=== PATIENT | female | born 1950 | race Caucasian/White ===

== ENCOUNTER 2023-02-11 18:33 | Inpatient (IN) | payer OTHER ==
[~2023-02-11] VITALS: Ht 165.1 cm; Wt 102.5 kg
[2023-02-11] MEDS ORDERED: CARV6.252 PO (18:55)
[2023-02-11] MEDS ORDERED: FURO-152 PO (18:55)
[2023-02-11] MEDS ORDERED: ONDA4TAB5 PO (18:55)
[2023-02-11] MEDS ORDERED: ESOM20CA PO (18:55)
[2023-02-11] MEDS ORDERED: TRAM50TA2 PO (18:55)
[2023-02-11] MEDS ORDERED: APIX2.5T PO (18:55)
[2023-02-11] MEDS ORDERED: LEVO150T PO (18:55)
[2023-02-11] MEDS ORDERED: DONE5TAB34 PO (18:55)
[2023-02-11] MEDS ORDERED: AMIO100T4 PO (18:55)
[2023-02-11] MEDS ORDERED: CRAN250C PO (18:55)
[2023-02-11] MEDS ORDERED: ASPI81TA31 PO (18:55)
[2023-02-11] MEDS ORDERED: MEMA10TA PO (18:55)
[2023-02-11] MEDS ORDERED: LIDOCAINE PATCH 5% (18:55)
[2023-02-11] MEDS ORDERED: FLUO40CA49 PO (18:55)
[2023-02-11] MEDS ORDERED: ERGOCALCIFEROL (18:55)
[2023-02-11] MEDS ORDERED: DOCU-141 PO (18:55)
[2023-02-11] MEDS ORDERED: SENN8.6T19 PO (18:55)
[2023-02-11] MEDS ORDERED: GABA-532 PO (18:55)
[2023-02-11] MEDS ORDERED: DIVA-78 PO (18:55)
[2023-02-11] MEDS ORDERED: ARIP2TAB3 PO (18:55)
[2023-02-11] MEDS ORDERED: BENZ-13 PO (18:55)
[2023-02-11] MEDS ORDERED: ENALAPRILAT DIHYDRATE 1.25 MG/1 ML VIAL IV ONE ×2 (19:30→19:36)
[2023-02-11] MEDS ORDERED: NITROGLYCERIN OINT 1 GM PACKET TP ONE ×2 (19:30→19:36)
[2023-02-11 19:37] LABS: CARBON DIOXIDE 31 mmol/L (21-32); CHLORIDE 105 mmol/L (98-107); CREATININE 1.3 mg/dL (0.6-1.3); HEMATOCRIT 33.6 % (31.2-41.9); MEAN CORPUSCULAR HEMOGLOBIN 30.8 uug (24.7-32.8); MEAN CORPUSCULAR VOLUME 95.4 fL (75.5-95.3); PLATELET COUNT (AUTO) 70 K/uL (179-408); POTASSIUM 3.8 mmol/L (3.5-5.1); UREA NITROGEN, BLOOD 24 mg/dL (7-18)
[2023-02-11 19:50] LABS: ALANINE AMINOTRANSFERASE 14 U/L (14-59); ALKALINE PHOSPHATASE 119 U/L (50-136); ASPARTATE AMINOTRANSFERASE 19 U/L (15-37); BILIRUBIN,DIRECT 0.2 mg/dL (0.0-0.2); BILIRUBIN,TOTAL 0.5 mg/dL (0.2-1.0); TOTAL PROTEIN, SERUM 5.7 g/dL (6.4-8.2)
--- NOTE | 2023-02-11 19:56 | NUR ---
PATIENT RESTING IN BED WITH C/O SOB AND GENERALIZED EDEMA X FEW DAYS. PATIENT IS ALERT, ORIENTED X3, LUNG SOUNDS WITH RHONCHI, ABD OBESE WITH POSITIVE BOWEL SOUNDS. INFORMED OF PLAN OF CARE. #22G WAS ESTABLISHED IN RIGHT HAD, BLOOD COLLECTED AND SENT TO LAB, BEDSIDE EKG DONE FOR MD REVIEW, LO CATH INSERTED AND URINE WAS SENT TO LAB. SIDE RAILS, HAS BEEN MEDICATED PER ORDER, WILL CONTINUE TO MONITOR.
[2023-02-11 20:07] LABS: *BILIRUBIN,URIN NEGATIVE (NEGATIVE); *BLOOD, URINE 1+ (NEGATIVE); *CLARITY,URINE CLEAR (CLEAR); *COLOR,URINE YELLOW (YELLOW); *KETONES,URINE NEGATIVE (NEGATIVE); LEUKOCYTE ESTERASE ,URINE NEGATIVE (NEGATIVE); NITRITE, URINE NEGATIVE (NEGATIVE); PH,URINE 5.5 (5.0-8.0); UGLUCOSE NEGATIVE (NEGATIVE)
[2023-02-11] MEDS ORDERED: FUROSEMIDE 40 MG/4 ML VIAL ONE ×2 (20:22→20:27)
[2023-02-11] MEDS ORDERED: POTASSIUM CHLORIDE 20 MEQ TAB.PRT.SR ONE (20:24)
[2023-02-11 20:25] LABS: NEUTROPHILS % (MANUAL) 0 % (42-75)
[2023-02-11] MEDS ORDERED: POTASSIUM CHLORIDE 20 MEQ TAB.PRT.SR PO ONE (20:30)
[2023-02-11] MEDS ORDERED: FUROSEMIDE 40 MG/4 ML VIAL IV ONE (20:30)
[2023-02-11] MEDS ORDERED: POTASSIUM CHLORIDE 20 MEQ POWDER PACKET PO ONE (20:30)
--- NOTE | 2023-02-11 20:44 | NUR ---
PATIENT RECEIVED 40MEQ OF KLOR-CON TABLETS NOT K-DUR. PATIENT REPOSITIONED FOR COMFORT AT THIS TIME.
--- NOTE | 2023-02-11 21:15 | NUR ---
CALLED [facility] FOR PANEL CALL. AWAITING FOR EFRA GAMEZ TO CALL BACK
--- NOTE | 2023-02-11 21:18 | NUR ---
PATIENT WANT'S DAUGHTER PATRICA TO BE CALLED FOR EMERGENCY [phone].
--- NOTE | 2023-02-11 21:27 | NUR ---
PATIENT HAS BEEN ACCEPTED BY EFRA GAMEZ
--- NOTE | 2023-02-11 21:28 | NUR ---
3RD FLOOR CALLED, PATIENT ASSIGNED TO ROOM 316
[2023-02-11] MEDS ORDERED: ONDANSETRON 4 MG/2 ML VIAL IV PRN (21:45)
[2023-02-11] MEDS ORDERED: MAGNESIUM HYDROXIDE 30 ML LIQUID UDC PO PRN (21:45)
--- NOTE | 2023-02-11 22:14 | NUR ---
REPORT GIVEN TO MOHSEN, PATIENT REMAINS STABLE FOR TRANSPORT TO UNIT.
[2023-02-11 22:50] LABS: BACTERIA,URINE FEW /HPF (NONE SEEN); SQUAMOUS EPITHELIAL CELL,UR FEW /HPF (NONE SEEN); WBC,URINE 0-3 /HPF (0-3)
[2023-02-11 23:23] VITALS: BP 116/79; TEMP 97.7; O2SAT 99
[2023-02-12 00:12] VITALS: O2SAT 99
--- NOTE | 2023-02-12 01:23 | NUR ---
Received report from [facility]. pt is alert oriented x 3, verbally responsive, incontinent, with generalized edema, bruises bilateral upper arms, bed bound, admitted for DX CHF exacerbation. Pictures taken, bed in low position, call light within reach.
[2023-02-12 04:00] VITALS: BP 116/72; TEMP 97.5; O2SAT 98
[2023-02-12] MEDS: PANTOPRAZOLE SODIUM 40 MG TABLET.DR PO SCH (06:18)
[2023-02-12 07:36] LABS: HEMATOCRIT 30.1 % (31.2-41.9); MEAN CORPUSCULAR HEMOGLOBIN 31.3 uug (24.7-32.8); MEAN CORPUSCULAR VOLUME 95.2 fL (75.5-95.3); PLATELET COUNT (AUTO) 69 K/uL (179-408)
[2023-02-12 07:41] LABS: CARBON DIOXIDE 30 mmol/L (21-32); CHLORIDE 105 mmol/L (98-107); CHOLESTEROL 139 mg/dL (<200); CREATININE 1.1 mg/dL (0.6-1.3); HDL CHOLESTEROL 52 mg/dL (40-60); MAGNESIUM 1.3 mg/dL (1.8-2.4); PHOSPHOROUS 3.2 mg/dL (2.5-4.9); POTASSIUM 3.8 mmol/L (3.5-5.1); TRIGLYCERIDES 69 MG/DL (30-150); UREA NITROGEN, BLOOD 23 mg/dL (7-18)
[2023-02-12 08:20] LABS: THYROID STIMULATING HORMONE 14.645 mIU/mL (0.358-3.740)
[2023-02-12 08:57] LABS: NEUTROPHILS % (MANUAL) 0 % (42-75)
[2023-02-12 08:58] LABS: LYMPHOCYTES % (MANUAL) 0 % (20-40)
[2023-02-12] MEDS ORDERED: ASPIRIN 81 MG TAB.CHEW PO SCH (09:00)
[2023-02-12] MEDS ORDERED: FUROSEMIDE 40 MG/4 ML VIAL IV SCH (09:00)
--- NOTE | 2023-02-12 09:00 | NUR ---
SEEN BY DR DIAZ AND DR POMPA FOR FOLLOW-UP SEE NOTES
[2023-02-12] MEDS: FUROSEMIDE 40 MG/4 ML VIAL IV SCH ×2 (09:04→17:33)
[2023-02-12] MEDS: APIXABAN 2.5 MG TABLET PO SCH ×2 (09:26→20:57)
[2023-02-12] MEDS: MEMANTINE HCL 5 MG TABLET PO SCH (09:27)
[2023-02-12] MEDS: FLUOXETINE HCL 20 MG CAPSULE PO SCH (09:27)
[2023-02-12] MEDS: DOCUSATE SODIUM 100 MG CAPSULE PO SCH ×2 (09:27→17:33)
[2023-02-12] MEDS: LEVOTHYROXINE SODIUM 150 MCG TABLET PO SCH (09:30)
[2023-02-12] MEDS: CARVEDILOL 6.25 MG TABLET PO SCH ×2 (09:31→17:34)
[2023-02-12] MEDS: GABAPENTIN 100 MG CAPSULE PO SCH ×3 (09:51→17:33)
[2023-02-12] MEDS: ARIPIPRAZOLE 2 MG TABLET PO SCH (09:51)
[2023-02-12] MEDS: SENNOSIDES 1 TABLET PO SCH (09:51)
[2023-02-12 11:54] VITALS: BP 105/64; TEMP 97.5; O2SAT 98
[2023-02-12] MEDS: MAGNESIUM SULFATE/D5W 100 ML IV SCH ×2 (12:14→14:00)
[2023-02-12 16:15] VITALS: BP 172/70; TEMP 98.4; O2SAT 99
[2023-02-12] MEDS ORDERED: ERGO500040 PO (17:14)
[2023-02-12] MEDS: PROTEIN SUPPLEMENT (PROSTAT) 30 ML LIQUID PO SCH (17:35)
--- NOTE | 2023-02-12 17:48 | NUR ---
CONTINUE PLAN OF CARE TOLERATING LASIX WITH URINE OUTPUT TOTAL OF 800 ML. SR ON MONITOR
[2023-02-12 18:43] VITALS: O2SAT 99
[2023-02-12 20:00] VITALS: BP 124/67; TEMP 98; O2SAT 99
[2023-02-12] MEDS ORDERED: ALBUTEROL SULFATE 2.5 MG/ 0.5 ML NEBU NEB PRN (20:00)
[2023-02-12] MEDS: DONEPEZIL 5 MG TABLET PO SCH (20:57)
[2023-02-12] MEDS: DIVALPROEX 250 MG TABLET.DR PO SCH (20:57)
[2023-02-12] MEDS: TRAMADOL HCL 50 MG TABLET PO PRN (21:05)
[2023-02-13] VITALS (7 sets, daily range): BP systolic 104–140; BP diastolic 38–78; TEMP 98–98.6; O2SAT 95–99
[2023-02-13] MEDS: PANTOPRAZOLE SODIUM 40 MG TABLET.DR PO SCH (06:32)
[2023-02-13] MEDS: LEVOTHYROXINE SODIUM 150 MCG TABLET PO SCH (06:35)
--- NOTE | 2023-02-13 06:41 | NUR ---
PATIENT ASLEEP IN BED. EASILY AROUSABLE. SLEPT WELL THROUGHOUT THE NIGHT. CALL LIGHT IN REACH. WILL CONTINUE TO MONITOR AND ASSESS
--- NOTE | 2023-02-13 07:30 | NUR ---
RECEIVED PATIENT IN BED AWAKE ALERT AND ORIENTED X3, ON O2 AT 2L NC SATURATING 96%. SR ON MONITOR. AM CRE GIVEN REQUIRES MIN TO MODERATE ASSISTANCE.
--- NOTE | 2023-02-13 09:00 | NUR ---
WOUND CARE CONSULT: PT PRESENTS WITH GENERALIZED EDEMA, DISCOLORATIONS TO ARMS AND RASH TO LEFT BREASTFOLD, PRESENT ON ADMISSION. DISCUSSED SKIN PROTECTION WITH NURSING STAFF. MD IN AGREEMENT WITH PLAN OF CARE.
[2023-02-13] MEDS: MEMANTINE HCL 5 MG TABLET PO SCH (09:02)
[2023-02-13] MEDS: ARIPIPRAZOLE 2 MG TABLET PO SCH (09:02)
[2023-02-13] MEDS: APIXABAN 2.5 MG TABLET PO SCH ×2 (09:02→21:00)
[2023-02-13] MEDS: GABAPENTIN 100 MG CAPSULE PO SCH ×3 (09:02→17:44)
[2023-02-13] MEDS: SENNOSIDES 1 TABLET PO SCH (09:03)
[2023-02-13] MEDS: FLUOXETINE HCL 20 MG CAPSULE PO SCH (09:03)
[2023-02-13] MEDS: FUROSEMIDE 40 MG/4 ML VIAL IV SCH ×2 (09:03→17:44)
[2023-02-13] MEDS: DOCUSATE SODIUM 100 MG CAPSULE PO SCH ×2 (09:03→17:00)
[2023-02-13] MEDS: CARVEDILOL 6.25 MG TABLET PO SCH ×2 (09:04→17:44)
[2023-02-13] MEDS: PROTEIN SUPPLEMENT (PROSTAT) 30 ML LIQUID PO SCH ×3 (09:05→17:28)
[2023-02-13] MEDS: REMEDY ESSENTIAL ZINC PASTE 113 GM TP PRN (09:05)
[2023-02-13] MEDS ORDERED: PIPERACILLIN SODIUM/TAZOBACTAM 3.375 G in IV DEXTROSE 5% 50 ML IV SCH (09:15)
[2023-02-13] MEDS ORDERED: VANCOMYCIN IV 1,000 MG in IV DEXTROSE 5% 250 ML IV SCH (11:00)
--- NOTE | 2023-02-13 11:30 | NUR ---
SEEN BY HOSPITALIST FOR FOLLOW-UP. CONTINUE PLAN OF CARE ORDERED. SEE NOTES. FOR MIDLINE INSERTION
[2023-02-13] MEDS: TRAMADOL HCL 50 MG TABLET PO PRN (11:37)
[2023-02-13 11:48] LABS: HEMATOCRIT 29.1 % (31.2-41.9); MEAN CORPUSCULAR HEMOGLOBIN 31.2 uug (24.7-32.8); MEAN CORPUSCULAR VOLUME 95.4 fL (75.5-95.3); PLATELET COUNT (AUTO) 64 K/uL (179-408)
[2023-02-13 13:20] LABS: EOSINOPHILS % (MANUAL) 1 % (0-8); LYMPHOCYTES % (MANUAL) 5 % (20-40); MONOCYTES % (MANUAL) 9 % (2-10); NEUTROPHILS % (MANUAL) 85 % (42-75)
[2023-02-13 13:23] LABS: ALANINE AMINOTRANSFERASE 9 U/L (14-59); ALKALINE PHOSPHATASE 109 U/L (50-136); ASPARTATE AMINOTRANSFERASE 11 U/L (15-37); BILIRUBIN,TOTAL 0.5 mg/dL (0.2-1.0); CARBON DIOXIDE 32 mmol/L (21-32); CHLORIDE 104 mmol/L (98-107); CREATINE KINASE, TOTAL 30 U/L (26-192); CREATININE 1.4 mg/dL (0.6-1.3); MAGNESIUM 1.5 mg/dL (1.8-2.4); PHOSPHOROUS 3.3 mg/dL (2.5-4.9); POTASSIUM 3.7 mmol/L (3.5-5.1); TOTAL PROTEIN, SERUM 5.1 g/dL (6.4-8.2); UREA NITROGEN, BLOOD 22 mg/dL (7-18)
[2023-02-13] MEDS ORDERED: PIPERACILLIN SODIUM/TAZOBACTAM 3.375 G in IV DEXTROSE 5% 100 ML IV SCH (14:00)
[2023-02-13] MEDS: CLOTRIMAZOLE 1% CREAM 30 GM TUBE TOP SCH (17:27)
[2023-02-13] MEDS: DONEPEZIL 5 MG TABLET PO SCH (21:12)
[2023-02-13] MEDS: DIVALPROEX 250 MG TABLET.DR PO SCH (21:15)
--- NOTE | 2023-02-13 21:20 | NUR ---
Rodriguez cath noted with pinkish urine and platelet of 64, Gabriel Hutton NP made aware with order to hold eliquis until morning. Dr Mcdonald also notified.
[2023-02-14] VITALS (9 sets, daily range): BP systolic 93–146; BP diastolic 51–73; TEMP 98–98.6; O2SAT 92–100
[2023-02-14] MEDS: TRAMADOL HCL 50 MG TABLET PO PRN ×3 (05:02→21:47)
[2023-02-14] MEDS: LEVOTHYROXINE SODIUM 150 MCG TABLET PO SCH (06:53)
[2023-02-14] MEDS: PANTOPRAZOLE SODIUM 40 MG TABLET.DR PO SCH (06:53)
--- NOTE | 2023-02-14 07:30 | NUR ---
NIGHT NURSE REPORT RECEIVED: 1) MENTAL STATE: AO x 3 a pleasant lady. 2) BREATHING: Patient on 2 liters oxygen via nasal cannula - , sat in the high 90s. No sign of distress observed. 3) SAFETY: Bedbound - Bed in low position, bed alarm activated, floor free of clutter and call smart within reach. 4) CIRCULATION: No signs of cyanosis observed. 5) MOBILITY: Patient on bed rest - needs assistance with all care. 6) BOWEL MOVEMENT: No Bowels at the time of this report. 7) SKIN: Patient has excoriation of the: (i) groin (ii) abdo fold (iii) breast fold (iv) rectum area 8) PLAN: Will continue to treat patient accordingly. Addendum: 02/14/23 at 0754 by REGISTRY [facility] INPATIENT RN13 RN Night nurse reported: (i) Hold 9am Neftali until reviewed by MD Casey (ii) Patient has pinkish urine (iii) Platelets 16
[2023-02-14] MEDS: APIXABAN 2.5 MG TABLET PO SCH ×2 (07:52→21:00)
--- NOTE | 2023-02-14 08:30 | NUR ---
VITALS: - Vitals recorded and within normal limits.
[2023-02-14] MEDS: MEMANTINE HCL 5 MG TABLET PO SCH (08:42)
[2023-02-14] MEDS: FLUOXETINE HCL 20 MG CAPSULE PO SCH (08:42)
[2023-02-14] MEDS: GABAPENTIN 100 MG CAPSULE PO SCH ×3 (08:42→17:54)
[2023-02-14] MEDS: CARVEDILOL 6.25 MG TABLET PO SCH ×2 (08:47→17:55)
[2023-02-14] MEDS: PROTEIN SUPPLEMENT (PROSTAT) 30 ML LIQUID PO SCH ×3 (08:47→17:10)
[2023-02-14] MEDS: FUROSEMIDE 40 MG/4 ML VIAL IV SCH ×2 (08:48→17:54)
[2023-02-14] MEDS: SENNOSIDES 1 TABLET PO SCH (08:49)
[2023-02-14] MEDS: DOCUSATE SODIUM 100 MG CAPSULE PO SCH ×2 (08:49→17:00)
[2023-02-14] MEDS: CLOTRIMAZOLE 1% CREAM 30 GM TUBE TOP SCH ×2 (08:50→17:10)
[2023-02-14 08:53] LABS: *RHEUMATOID FACTOR SCREEN NEGATIVE (NEGATIVE)
--- NOTE | 2023-02-14 09:03 | NUR ---
AM MEDICATION: 1) Administered as prescribed except: (i) Senna (ii) Docusate, because patient has loose stool. (iii) Abilify - awaiting pharmacy to deliver 2) Slight nose bleed - dried and scabs of dried blood on the left had (swollen) - patient picking on dried blood, advised not to as this will stimulate more bleeding. 3) Patient has swelling lower limbs and upper left hand.
--- NOTE | 2023-02-14 09:06 | NUR ---
ABILIFY ADMINISTERED NOW RECEIVED FROM PHARMACY
[2023-02-14] MEDS: ARIPIPRAZOLE 2 MG TABLET PO SCH (09:40)
[2023-02-14 11:59] LABS: CARBON DIOXIDE 33 mmol/L (21-32); CHLORIDE 103 mmol/L (98-107); CREATININE 1.3 mg/dL (0.6-1.3); MAGNESIUM 1.5 mg/dL (1.8-2.4); POTASSIUM 3.3 mmol/L (3.5-5.1); UREA NITROGEN, BLOOD 23 mg/dL (7-18)
--- NOTE | 2023-02-14 13:07 | NUR ---
ROUNDING - No sign of distress, SOB, cyanosis, or pain.
--- NOTE | 2023-02-14 15:29 | NUR ---
MI BLEEDIN) MD PHYSICIAN DERMATOLOGIST reported a large amount of MI bleed with bowel movement. 2) Sent a message to MD and await response and new orders. 3) Vitals: (i) BP 145/41 (ii) T98.1 (iii) P 71 (iv)Oxygen Sats 99% on RA 4) Complaining of rectal pain - Tramadol administered as prescribed and await effect.
[2023-02-14] MEDS: SOD FERRIC GLUC COMPLX/SUCROSE 125 MG in IV NORMAL SALINE 100 ML IV SCH ×2 (16:02→16:15)
--- NOTE | 2023-02-14 16:03 | NUR ---
NE BLEEDING UPDATE: 1) MD Casey responded - will come and assess patient as soon as possible. 2) Ordered Ferrlecit 125mg and waiting receipt from pharmacy. 3) Patient asleep comfortably - did not want to be moved to because of rectal pain.
--- NOTE | 2023-02-14 16:16 | NUR ---
IV FERRLECIT received and administered as prescribed.
--- NOTE | 2023-02-14 18:37 | NUR ---
ROUNDING" 1) No sign of distress, SOB, cyanosis, or pain. 2) Asleep comfortably - medication, food and drink consumed as needed. 3) MD ordered: (i) Labs as follows: CBC, Mag, Phos (ii) XR Chest 4) No further complaints for the rest of the day. 5) Will endorse care to night staff accordingly.
[2023-02-14] MEDS: DIVALPROEX 250 MG TABLET.DR PO SCH (20:53)
[2023-02-14] MEDS: DONEPEZIL 5 MG TABLET PO SCH (20:53)
[2023-02-15 05:00] VITALS: O2SAT 99
[2023-02-15] MEDS: PANTOPRAZOLE SODIUM 40 MG TABLET.DR PO SCH ×2 (06:29→17:22)
[2023-02-15] MEDS: LEVOTHYROXINE SODIUM 150 MCG TABLET PO SCH (06:29)
[2023-02-15 06:31] VITALS: BP 111/71; TEMP 98.6; O2SAT 98
--- NOTE | 2023-02-15 07:30 | NUR ---
NIGHT NURSE REPORT RECEIVED: 1) MENTAL STATE: BENTLEY landers 4, a pleasant lady. 2) BREATHING: Patient on 2 liters oxygen via nasal cannula - , sat in the high 90s. No sign of distress observed. 3) SAFETY: Bedbound - Bed in low position, bed alarm activated, floor free of clutter and call smart within reach. 4) CIRCULATION: No signs of cyanosis observed. Look pale and MD AWARE, hgb9.4 - no active bleeding at the time of this report. 5) MOBILITY: Patient on bed rest - needs maximum assistance with all care. 6) BOWEL MOVEMENT: Bowels opened last night - no blood observed by night staff. Patient is doubly incontinent. 7) SKIN: Patient has excoriation of the: (i) groin (ii) abdo fold (iii) breast fold (iv) rectum area (v) Has a blister on the right upper thigh - open to air and pic in folder 8) PLAN: Will continue to treat patient accordingly. Addendum: 02/14/23 at 0754 by REGISTRY [facility] INPATIENT RN13 RN Night nurse reported: (i) Hold 9am Eliquis until reviewed by MD Casey (ii) Patient has pinkish urine (iii) Platelets 16
[2023-02-15 07:40] LABS: HEMATOCRIT 28.8 % (31.2-41.9); MEAN CORPUSCULAR HEMOGLOBIN 30.9 uug (24.7-32.8); MEAN CORPUSCULAR VOLUME 94.7 fL (75.5-95.3); PLATELET COUNT (AUTO) 75 K/uL (179-408)
[2023-02-15 08:06] LABS: ALANINE AMINOTRANSFERASE 12 U/L (14-59); ALKALINE PHOSPHATASE 101 U/L (50-136); ASPARTATE AMINOTRANSFERASE 19 U/L (15-37); BILIRUBIN,TOTAL 0.5 mg/dL (0.2-1.0); CARBON DIOXIDE 34 mmol/L (21-32); CHLORIDE 102 mmol/L (98-107); CREATININE 1.3 mg/dL (0.6-1.3); MAGNESIUM 1.3 mg/dL (1.8-2.4); PHOSPHOROUS 3.2 mg/dL (2.5-4.9); POTASSIUM 3.4 mmol/L (3.5-5.1); TOTAL PROTEIN, SERUM 5.2 g/dL (6.4-8.2); UREA NITROGEN, BLOOD 28 mg/dL (7-18)
[2023-02-15] MEDS: PROTEIN SUPPLEMENT (PROSTAT) 30 ML LIQUID PO SCH ×4 (08:13→17:23)
[2023-02-15] MEDS: FUROSEMIDE 40 MG/4 ML VIAL IV SCH ×2 (08:14→17:22)
[2023-02-15] MEDS: MEMANTINE HCL 5 MG TABLET PO SCH (08:14)
[2023-02-15] MEDS: FLUOXETINE HCL 20 MG CAPSULE PO SCH (08:14)
[2023-02-15] MEDS: TRAMADOL HCL 50 MG TABLET PO PRN (08:14)
[2023-02-15] MEDS: GABAPENTIN 100 MG CAPSULE PO SCH ×3 (08:14→17:22)
[2023-02-15] MEDS: CARVEDILOL 6.25 MG TABLET PO SCH ×2 (08:15→17:24)
--- NOTE | 2023-02-15 08:50 | NUR ---
AM MEDICATION ADMINISTERED PRESCRIBED
[2023-02-15] MEDS: SENNOSIDES 1 TABLET PO SCH (09:00)
[2023-02-15] MEDS: DOCUSATE SODIUM 100 MG CAPSULE PO SCH ×2 (09:00→17:22)
[2023-02-15] MEDS: APIXABAN 2.5 MG TABLET PO SCH (09:00)
[2023-02-15] MEDS: CLOTRIMAZOLE 1% CREAM 30 GM TUBE TOP SCH ×2 (09:57→17:23)
[2023-02-15 10:14] LABS: LYMPHOCYTES % (MANUAL) 11 % (20-40); MONOCYTES % (MANUAL) 13 % (2-10); NEUTROPHILS % (MANUAL) 74 % (42-75)
[2023-02-15 10:15] LABS: EOSINOPHILS % (MANUAL) 2 % (0-8)
[2023-02-15] MEDS: ARIPIPRAZOLE 2 MG TABLET PO SCH (10:45)
[2023-02-15] MEDS ORDERED: POTASSIUM CHLORIDE 20 MEQ TAB.PRT.SR PO ONE (11:00)
[2023-02-15] MEDS: MAGNESIUM SULFATE/D5W 100 ML IV SCH ×8 (11:22→15:55)
[2023-02-15 11:35] VITALS: BP 110/53; TEMP 97.6; O2SAT 94
--- NOTE | 2023-02-15 12:30 | NUR ---
ELIMINATION: 1) Offensive RI loose bloody stool. 2) MD informed - will consult with GI MD 3) Remains on iron infusion due this afternoon.
--- NOTE | 2023-02-15 13:31 | NUR ---
CONSENTED AND CHECK LISTED FOR: (i) chest (ii) abdo (iii)pelvis (v) with or without contrast (vi) NPO by midnight - except for meds (v) spoke to Anuj - radiology ext [phone]
[2023-02-15] MEDS: SOD FERRIC GLUC COMPLX/SUCROSE 125 MG in IV NORMAL SALINE 100 ML IV SCH (13:50)
--- NOTE | 2023-02-15 15:48 | NUR ---
MAGNESIUM ADMINISTRATION - Administered x4 bags as prescribed but showing as if not given
[2023-02-15 15:59] VITALS: BP 112/67; TEMP 97.9; O2SAT 97
[2023-02-15 16:40] VITALS: O2SAT 97
[2023-02-15 20:00] VITALS: BP 104/65; TEMP 97.4
[2023-02-15] MEDS: DIVALPROEX 250 MG TABLET.DR PO SCH (21:01)
[2023-02-15] MEDS: DONEPEZIL 5 MG TABLET PO SCH (21:01)
[2023-02-16 02:16] VITALS: BP 183/79; TEMP 98; O2SAT 98
[2023-02-16 06:24] VITALS: BP 142/55; TEMP 98.2
[2023-02-16] MEDS: PANTOPRAZOLE SODIUM 40 MG TABLET.DR PO SCH ×2 (06:34→17:05)
[2023-02-16] MEDS: LEVOTHYROXINE SODIUM 150 MCG TABLET PO SCH (06:34)
--- NOTE | 2023-02-16 06:47 | NUR ---
Slept well throughout the night, no noted acute distress. Sinus rhythm on tele with HR 70. Rodriguez cath intact and draining well. NPO post midnight. Needs assessed and attended to.
[2023-02-16 07:14] LABS: MEAN CORPUSCULAR VOLUME 95.2 fL (75.5-95.3); PLATELET COUNT (AUTO) 66 K/uL (179-408)
[2023-02-16 07:52] LABS: CARBON DIOXIDE 35 mmol/L (21-32); CHLORIDE 102 mmol/L (98-107); CREATININE 1.4 mg/dL (0.6-1.3); POTASSIUM 3.7 mmol/L (3.5-5.1); UREA NITROGEN, BLOOD 36 mg/dL (7-18)
[2023-02-16] MEDS: PROTEIN SUPPLEMENT (PROSTAT) 30 ML LIQUID PO SCH ×4 (08:00→17:32)
[2023-02-16 08:06] LABS: A/G RATIO 1.2 (0.7-1.7); ALBUMIN 2.6 g/dL (2.9-4.4); ALPHA-1-GLOBULIN 0.3 g/dL (0.0-0.4); ALPHA-2-GLOBULIN 0.6 g/dL (0.4-1.0); BETA GLOBULIN 0.8 g/dL (0.7-1.3); GAMMA GLOBULIN 0.4 g/dL (0.4-1.8); GLOBULIN, TOTAL 2.2 g/dL (2.2-3.9); M-SPIKE Not Observed g/dL (Not Observed)
[2023-02-16] MEDS: GABAPENTIN 100 MG CAPSULE PO SCH ×3 (08:57→17:05)
[2023-02-16] MEDS: MEMANTINE HCL 5 MG TABLET PO SCH (08:57)
[2023-02-16] MEDS: DOCUSATE SODIUM 100 MG CAPSULE PO SCH ×2 (08:57→17:05)
[2023-02-16] MEDS: FUROSEMIDE 40 MG/4 ML VIAL IV SCH ×2 (08:57→17:05)
[2023-02-16] MEDS: FLUOXETINE HCL 20 MG CAPSULE PO SCH (08:57)
[2023-02-16] MEDS: ARIPIPRAZOLE 2 MG TABLET PO SCH (08:58)
[2023-02-16] MEDS: CARVEDILOL 6.25 MG TABLET PO SCH ×2 (08:58→17:32)
[2023-02-16] MEDS: REMEDY ESSENTIAL ZINC PASTE 113 GM TP PRN (08:59)
[2023-02-16] MEDS: CLOTRIMAZOLE 1% CREAM 30 GM TUBE TOP SCH ×2 (09:00→17:06)
--- NOTE | 2023-02-16 09:01 | NUR ---
PATIENT SEEN AND EXAMINED BY DR PARSONS WITH NEW ORDERS AND NOTED
[2023-02-16] MEDS: SENNOSIDES 1 TABLET PO SCH (10:03)
[2023-02-16] MEDS: POTASSIUM CHLORIDE 50 ML IV SCH ×2 (10:03→11:45)
[2023-02-16 10:06] LABS: *ANTI-SCLERODERMA-70 AB <0.2 AI (0.0-0.9); *SJOGREN'S ANTI-SS-A <0.2 AI (0.0-0.9); *SJOGREN'S ANTI-SS-B <0.2 AI (0.0-0.9); *SMITH ANTIBODIES <0.2 AI (0.0-0.9); ANTI-DNA(DS) AB, QN <1 IU/mL (0-9)
[2023-02-16] MEDS ORDERED: IV NORMAL SALINE 250 ML IV ONE (10:26)
[2023-02-16] MEDS ORDERED: SWABABLE VALVE TRANSFER SET EA MC ONE (10:26)
[2023-02-16] MEDS ORDERED: IOHEXOL 300MG/ML 100 ML INFUS..BTL ONE (10:26)
--- NOTE | 2023-02-16 11:13 | NUR ---
PATIENT PICKED UP BY BED TO XRAY DEPT FOR CT CHEST ABDOMEN AND PELVIS ORDERED
[2023-02-16 11:53] VITALS: BP 127/79; TEMP 97.3; O2SAT 97
[2023-02-16 12:06] LABS: ALBUMIN 2.3 g/dL (2.9-4.4); ALPHA-1-GLOBULIN 0.3 g/dL (0.0-0.4); ALPHA-2-GLOBULIN 0.6 g/dL (0.4-1.0); BETA GLOBULIN 0.8 g/dL (0.7-1.3); GAMMA GLOBULIN 0.5 g/dL (0.4-1.8); GLOBULIN, TOTAL 2.2 g/dL (2.2-3.9); M-SPIKE Not Observed g/dL (Not Observed)
[2023-02-16 13:20] VITALS: O2SAT 97
[2023-02-16] MEDS: SOD FERRIC GLUC COMPLX/SUCROSE 125 MG in IV NORMAL SALINE 100 ML IV SCH (14:01)
[2023-02-16 15:57] VITALS: BP 99/48; TEMP 97.6; O2SAT 95
--- NOTE | 2023-02-16 18:00 | NUR ---
REMAIN AWAKE ALERT VERBALLY RESPONSIVE.REMAIN ON O2 WITH NO SHORTNESS OF BREATH AT THIS TIME GENERALIZED EDEMA LEFT ARM WEEPING REMAIN ON DIURETICS ORDERED F/C TO GRAVITY DRAINAGE WITH NO HEMATURIA MADE COMFORTABLE WILL CONTINUE TO OBSERVE.
[2023-02-16] MEDS: DIVALPROEX 250 MG TABLET.DR PO SCH (20:27)
[2023-02-16] MEDS: DONEPEZIL 5 MG TABLET PO SCH (20:27)
[2023-02-16 21:05] VITALS: BP 123/64; TEMP 97.2; O2SAT 95
[2023-02-16] MEDS: ACETAMINOPHEN 325 MG TABLET PO PRN (21:24)
[2023-02-16 22:34] LABS: *OCCULT BLOOD STOOL NEGATIVE (NEGATIVE)
[2023-02-17] VITALS (7 sets, daily range): BP systolic 102–137; BP diastolic 68–70; TEMP 97.3–98.2; O2SAT 97–99
[2023-02-17 03:06] LABS: HEPATITIS B SURFACE AG Negative (Negative)
[2023-02-17] MEDS: PANTOPRAZOLE SODIUM 40 MG TABLET.DR PO SCH ×2 (06:29→17:19)
[2023-02-17] MEDS: LEVOTHYROXINE SODIUM 150 MCG TABLET PO SCH (06:29)
--- NOTE | 2023-02-17 07:30 | NUR ---
RECEIVED IN BED AWAKE ALERT AND ORIENTED ON O2 WITH NO SOB AT THIS TIME.ON FIRST STEP TYRONE ASSISTED WITH REPOSITIONING Q2H GENERALISED WEAKNESS EVIDENT REMAIN ON DIURETICS ORDERED.CALL LIGHTS AND PERSONAL BELONGINGS ARE WITHIN EASY REACH WILL CONTINUE TO OBSERVE.
[2023-02-17 07:47] LABS: MEAN CORPUSCULAR HEMOGLOBIN 31.2 uug (24.7-32.8); MEAN CORPUSCULAR VOLUME 96.2 fL (75.5-95.3); PLATELET COUNT (AUTO) 66 K/uL (179-408)
[2023-02-17 08:01] LABS: LYMPHOCYTES % (MANUAL) 0 % (20-40); NEUTROPHILS % (MANUAL) 0 % (42-75)
[2023-02-17 08:07] LABS: ALANINE AMINOTRANSFERASE 10 U/L (14-59); ALKALINE PHOSPHATASE 111 U/L (50-136); ASPARTATE AMINOTRANSFERASE 23 U/L (15-37); BILIRUBIN,TOTAL 0.4 mg/dL (0.2-1.0); CARBON DIOXIDE 33 mmol/L (21-32); CHLORIDE 100 mmol/L (98-107); CREATININE 1.4 mg/dL (0.6-1.3); PHOSPHOROUS 3.3 mg/dL (2.5-4.9); POTASSIUM 3.6 mmol/L (3.5-5.1); TOTAL PROTEIN, SERUM 5.1 g/dL (6.4-8.2); UREA NITROGEN, BLOOD 33 mg/dL (7-18)
[2023-02-17] MEDS: DOCUSATE SODIUM 100 MG CAPSULE PO SCH ×2 (08:39→17:19)
[2023-02-17] MEDS: FUROSEMIDE 40 MG/4 ML VIAL IV SCH ×2 (08:40→17:19)
[2023-02-17] MEDS: SENNOSIDES 1 TABLET PO SCH (08:40)
[2023-02-17] MEDS: GABAPENTIN 100 MG CAPSULE PO SCH ×3 (08:40→17:19)
[2023-02-17] MEDS: FLUOXETINE HCL 20 MG CAPSULE PO SCH (08:40)
[2023-02-17] MEDS: MEMANTINE HCL 5 MG TABLET PO SCH (08:40)
[2023-02-17] MEDS: ARIPIPRAZOLE 2 MG TABLET PO SCH (08:43)
[2023-02-17] MEDS: CLOTRIMAZOLE 1% CREAM 30 GM TUBE TOP SCH ×2 (08:43→17:20)
[2023-02-17] MEDS: PROTEIN SUPPLEMENT (PROSTAT) 30 ML LIQUID PO SCH ×4 (08:52→20:00)
[2023-02-17] MEDS: CARVEDILOL 6.25 MG TABLET PO SCH ×2 (08:53→17:25)
--- NOTE | 2023-02-17 10:31 | NUR ---
PATIENT SEEN AND EXAMINED BY [facility] TIN CONTAINER STRAIGHTENER WITH NEW ORDERS AND NOTED
[2023-02-17] MEDS: ACETAMINOPHEN 325 MG TABLET PO PRN (11:07)
--- NOTE | 2023-02-17 11:07 | NUR ---
PATIENT REQUESTED FOR TYLENOL STATED HAS GENERALISED PAIN MEDICATED ORDERED MADE COMFORTABLE WILL CONTINUE TO OBSERVE.
[2023-02-17] MEDS: SOD FERRIC GLUC COMPLX/SUCROSE 125 MG in IV NORMAL SALINE 100 ML IV SCH (13:26)
--- NOTE | 2023-02-17 18:00 | NUR ---
RESTING IN BED STATED COMFORTABLE NOT IN DISTRESS AT THIS TIME WILL CONTINUE TO OBSERVE.
--- NOTE | 2023-02-17 19:30 | NUR ---
RECEIVED PATIENT LAYING IN BED, WITH FAMILY FRIEND AT BEDSIDE. IN NO ACUTE DISTRESS. ALERT AND ORIENTED X2-3 OFTEN FORGETFUL AND CONFUSED OCCASIONALLY HARD OF HEARING. IV SITE PATENT AND INTACT. LO CATHETER DRAINING WELL. WILL CONTINUE TO MONITOR.
[2023-02-17] MEDS: DONEPEZIL 5 MG TABLET PO SCH (20:19)
[2023-02-17] MEDS: DIVALPROEX 250 MG TABLET.DR PO SCH (20:19)
[2023-02-18 00:44] VITALS: BP 146/42; TEMP 98.2; O2SAT 99
[2023-02-18 06:06] VITALS: BP 146/78; TEMP 98.4; O2SAT 100
--- NOTE | 2023-02-18 06:07 | NUR ---
PATIENT RESTED WELL IN BETWEEN CARE. IV SITE PATENT AND INTACT. LO CATHETER DRAINING WELL. ALL NEEDS ATTENDED TO. HOURLY ROUNDING DONE. CONTINUE TO MONITOR AND PLAN OF CARE.
[2023-02-18] MEDS: PANTOPRAZOLE SODIUM 40 MG TABLET.DR PO SCH ×2 (06:25→17:08)
[2023-02-18] MEDS: LEVOTHYROXINE SODIUM 150 MCG TABLET PO SCH (06:25)
[2023-02-18] MEDS ORDERED: POTASSIUM CHLORIDE 20 MEQ POWDER PACKET GT ONE (07:00)
[2023-02-18 07:23] LABS: HEMATOCRIT 28.4 % (31.2-41.9); MEAN CORPUSCULAR HEMOGLOBIN 30.9 uug (24.7-32.8); MEAN CORPUSCULAR VOLUME 95.3 fL (75.5-95.3); PLATELET COUNT (AUTO) 74 K/uL (179-408)
--- NOTE | 2023-02-18 07:30 | NUR ---
NIGHT NURSE REPORT RECEIVED: 1) MENTAL STATE: AO x 3 a pleasant lady. 2) BREATHING: Patient on 2 liters oxygen via nasal cannula - , sat in the high 90s. No sign of distress observed. 3) SAFETY: Bedbound - Bed in low position, bed alarm activated, floor free of clutter and call smart within reach. 4) CIRCULATION: No signs of cyanosis observed. 5) MOBILITY: Patient on bed rest - needs maximum assistance with all care. 6) BOWEL MOVEMENT: No Bowels at the time of this report. 7) SKIN: Patient has excoriation of the: (i) groin (ii) abdo fold (iii) breast fold (iv) rectum area (v) blister to RUL - SIERRA 8) PLAN: Will continue to treat patient accordingly.
[2023-02-18] MEDS: PROTEIN SUPPLEMENT (PROSTAT) 30 ML LIQUID PO SCH ×4 (08:00→14:49)
[2023-02-18 08:24] LABS: ALANINE AMINOTRANSFERASE 14 U/L (14-59); ALKALINE PHOSPHATASE 122 U/L (50-136); ASPARTATE AMINOTRANSFERASE 22 U/L (15-37); BILIRUBIN,TOTAL 0.4 mg/dL (0.2-1.0); CARBON DIOXIDE 35 mmol/L (21-32); CHLORIDE 100 mmol/L (98-107); CREATININE 1.6 mg/dL (0.6-1.3); TOTAL PROTEIN, SERUM 5.2 g/dL (6.4-8.2); UREA NITROGEN, BLOOD 39 mg/dL (7-18)
[2023-02-18] MEDS ORDERED: SPIRONOLACTONE 25 MG TABLET PO SCH (09:00)
[2023-02-18] MEDS: DOCUSATE SODIUM 100 MG CAPSULE PO SCH ×2 (09:00→17:00)
[2023-02-18] MEDS: SENNOSIDES 1 TABLET PO SCH (09:00)
[2023-02-18] MEDS: CARVEDILOL 6.25 MG TABLET PO SCH ×2 (09:03→17:44)
[2023-02-18] MEDS: ARIPIPRAZOLE 2 MG TABLET PO SCH (09:04)
[2023-02-18] MEDS: FLUOXETINE HCL 20 MG CAPSULE PO SCH (09:04)
[2023-02-18] MEDS: FUROSEMIDE 40 MG/4 ML VIAL IV SCH ×2 (09:04→17:08)
[2023-02-18] MEDS: GABAPENTIN 100 MG CAPSULE PO SCH ×3 (09:04→17:08)
[2023-02-18] MEDS: MEMANTINE HCL 5 MG TABLET PO SCH (09:05)
[2023-02-18 09:06] LABS: *IMMUNOGLOBULIN G, SERUM 493 mg/dL (586-1602); IMMUNOGLOBULIN M, SERUM 35 mg/dL (26-217)
[2023-02-18] MEDS: CLOTRIMAZOLE 1% CREAM 30 GM TUBE TOP SCH ×2 (09:20→17:43)
--- NOTE | 2023-02-18 10:38 | NUR ---
AM MEDICATION ADMINISTERED PRESCRIBED.
[2023-02-18 11:57] VITALS: BP 104/57; TEMP 98; O2SAT 95
--- NOTE | 2023-02-18 12:30 | NUR ---
ROUNDING:- Awake and watching TV accordingly
[2023-02-18] MEDS: SOD FERRIC GLUC COMPLX/SUCROSE 125 MG in IV NORMAL SALINE 100 ML IV SCH (14:04)
--- NOTE | 2023-02-18 14:32 | NUR ---
FAMILY COMMUNICATION: 1) Daughter Lashonda called for an update 2) Will visit mum later this evening
--- NOTE | 2023-02-18 15:00 | NUR ---
ROUNDIN) Offered fluids 2) IV iron infusion commenced and running as per regime. 3) Iv access clean, dry, intact, patent and no sign of infection and inflammation observed. 4) Asked for gown to be changed and clean bed linen - provided and made comfortable.
[2023-02-18 16:00] VITALS: BP 108/44; TEMP 98.6; O2SAT 100
[2023-02-18] MEDS ORDERED: APIXABAN 2.5 MG TABLET PO SCH (17:00)
[2023-02-18 17:13] VITALS: O2SAT 98
--- NOTE | 2023-02-18 19:16 | NUR ---
END OF SHIFT REPORT: 1) Patient clinically stable at the time of this report. 2) Will endorse care accordingly to night nurses
[2023-02-18 20:32] VITALS: BP 94/45; TEMP 97.8; O2SAT 97
[2023-02-18] MEDS: DONEPEZIL 5 MG TABLET PO SCH (21:37)
[2023-02-18] MEDS: PHENAZOPYRIDINE HCL 100 MG TABLET PO SCH (21:37)
[2023-02-18] MEDS: DIVALPROEX 250 MG TABLET.DR PO SCH (21:38)
[2023-02-19 00:13] VITALS: BP 94/46; TEMP 97.8; O2SAT 98
[2023-02-19 04:53] VITALS: BP 101/51; TEMP 97.7; O2SAT 98
[2023-02-19 05:57] VITALS: O2SAT 98
[2023-02-19] MEDS: LEVOTHYROXINE SODIUM 150 MCG TABLET PO SCH (06:23)
[2023-02-19] MEDS: PANTOPRAZOLE SODIUM 40 MG TABLET.DR PO SCH ×2 (06:23→17:32)
[2023-02-19 06:58] LABS: HEMATOCRIT 25.8 % (31.2-41.9); MEAN CORPUSCULAR HEMOGLOBIN 31.3 uug (24.7-32.8); MEAN CORPUSCULAR VOLUME 94.9 fL (75.5-95.3); PLATELET COUNT (AUTO) 66 K/uL (179-408)
[2023-02-19 07:09] LABS: CARBON DIOXIDE 35 mmol/L (21-32); CHLORIDE 101 mmol/L (98-107); UREA NITROGEN, BLOOD 52 mg/dL (7-18)
--- NOTE | 2023-02-19 07:18 | NUR ---
REPORT GIVEN TO TIA XIONG
[2023-02-19] MEDS: PROTEIN SUPPLEMENT (PROSTAT) 30 ML LIQUID PO SCH ×2 (08:00→09:00)
[2023-02-19] MEDS: DOCUSATE SODIUM 100 MG CAPSULE PO SCH ×2 (09:00→17:00)
[2023-02-19] MEDS: SENNOSIDES 1 TABLET PO SCH (09:00)
[2023-02-19] MEDS: PHENAZOPYRIDINE HCL 100 MG TABLET PO SCH ×3 (09:36→17:32)
[2023-02-19] MEDS: MEMANTINE HCL 5 MG TABLET PO SCH (09:36)
[2023-02-19] MEDS: FLUOXETINE HCL 20 MG CAPSULE PO SCH (09:37)
[2023-02-19] MEDS: CARVEDILOL 6.25 MG TABLET PO SCH ×2 (09:37→17:32)
[2023-02-19] MEDS: GABAPENTIN 100 MG CAPSULE PO SCH ×3 (09:37→17:32)
[2023-02-19] MEDS: ARIPIPRAZOLE 2 MG TABLET PO SCH (09:38)
[2023-02-19] MEDS: CLOTRIMAZOLE 1% CREAM 30 GM TUBE TOP SCH ×2 (09:40→17:23)
--- NOTE | 2023-02-19 09:43 | NUR ---
NIGHT NURSE REPORT RECEIVED: 1) MENTAL STATE: AO x 3 a pleasant lady. 2) BREATHING: Patient on 2 liters oxygen via nasal cannula - , sat in the high 90s. No sign of distress observed. 3) SAFETY: Bedbound - Bed in low position, bed alarm activated, floor free of clutter and call smart within reach. 4) CIRCULATION: No signs of cyanosis observed. 5) MOBILITY: Patient on bed rest - needs maximum assistance with all care. 6) ELIMINATION: (i) No Bowels at the time of this report. (ii) still c/o of urinary pain and burning sensation - pyridium commenced yesterday (for 2 day) 7) SKIN: Patient has excoriation of the: (i) groin (ii) abdo fold (iii) breast fold (iv) rectum area (v) blister to RUL - SIERRA 8) PLAN: Will continue to treat patient accordingly.
[2023-02-19 12:00] VITALS: BP 102/56; TEMP 98.3; O2SAT 98
--- NOTE | 2023-02-19 14:00 | NUR ---
PATIENT SLEEPING ON AND OFF DURING THE DAY.
[2023-02-19] MEDS: ACETAMINOPHEN 325 MG TABLET PO PRN (14:46)
[2023-02-19 16:00] VITALS: BP 117/64; TEMP 97.4; O2SAT 97
--- NOTE | 2023-02-19 16:45 | NUR ---
DAUGHTER CONSENTED FOR BONE MARROW BIOPSY TOMORROW - TREVA WITNESSED.
--- NOTE | 2023-02-19 19:00 | NUR ---
END OF SHIFT REPORT 1) Eating & drinking well. 3) No further complaints for the rest of the evening. 4) Will endorse care to night staff accordingly.
[2023-02-19 20:00] VITALS: BP 133/64; TEMP 97.6; O2SAT 93
[2023-02-19] MEDS: DIVALPROEX 250 MG TABLET.DR PO SCH (22:11)
[2023-02-19] MEDS: DONEPEZIL 5 MG TABLET PO SCH (22:11)
[2023-02-20] VITALS (8 sets, daily range): BP systolic 111–135; BP diastolic 55–78; TEMP 96.1–98.1; O2SAT 95–98
[2023-02-20] MEDS: PANTOPRAZOLE SODIUM 40 MG TABLET.DR PO SCH ×2 (06:46→17:26)
[2023-02-20] MEDS: LEVOTHYROXINE SODIUM 150 MCG TABLET PO SCH (06:46)
[2023-02-20 07:16] LABS: HEMATOCRIT 27.9 % (31.2-41.9); MEAN CORPUSCULAR HEMOGLOBIN 31.4 uug (24.7-32.8); MEAN CORPUSCULAR VOLUME 95.1 fL (75.5-95.3); PLATELET COUNT (AUTO) 69 K/uL (179-408)
--- NOTE | 2023-02-20 07:28 | NUR ---
REPORT GIVEN TO TIA XIONG
[2023-02-20 07:37] LABS: CARBON DIOXIDE 35 mmol/L (21-32); CHLORIDE 99 mmol/L (98-107); CREATININE 2.1 mg/dL (0.6-1.3); POTASSIUM 4.2 mmol/L (3.5-5.1); UREA NITROGEN, BLOOD 57 mg/dL (7-18)
[2023-02-20] MEDS: MEMANTINE HCL 5 MG TABLET PO SCH (08:39)
[2023-02-20] MEDS: CARVEDILOL 6.25 MG TABLET PO SCH ×2 (08:40→17:26)
[2023-02-20] MEDS: GABAPENTIN 100 MG CAPSULE PO SCH ×3 (08:40→17:28)
[2023-02-20] MEDS: PHENAZOPYRIDINE HCL 100 MG TABLET PO SCH ×3 (08:40→17:28)
[2023-02-20] MEDS: FLUOXETINE HCL 20 MG CAPSULE PO SCH (08:40)
[2023-02-20] MEDS: PROTEIN SUPPLEMENT (PROSTAT) 30 ML LIQUID PO SCH ×2 (08:40→09:39)
[2023-02-20] MEDS: ARIPIPRAZOLE 2 MG TABLET PO SCH (08:41)
--- NOTE | 2023-02-20 08:59 | NUR ---
AM MEDICATION: Administered as prescribed
[2023-02-20] MEDS: SENNOSIDES 1 TABLET PO SCH (09:00)
[2023-02-20] MEDS: DOCUSATE SODIUM 100 MG CAPSULE PO SCH ×2 (09:00→17:00)
[2023-02-20] MEDS: CLOTRIMAZOLE 1% CREAM 30 GM TUBE TOP SCH ×2 (09:39→17:00)
--- NOTE | 2023-02-20 11:32 | NUR ---
ROUNDING: Asleep comfortably in bed, no sign of distress, sob, or discomfort observed.
--- NOTE | 2023-02-20 13:36 | NUR ---
ROUNDING: Asleep comfortably in bed, no sign of SOB, pain, discomfort or distress observed.
[2023-02-20] MEDS ORDERED: LIDOCAINE HCL 1% 20 ML VIAL IJ PRN (16:30)
--- NOTE | 2023-02-20 18:28 | NUR ---
END OF SHIFT REPORT: 1) No change in condition 2) Patient clinically stable at the time of this report. 3) Will endorse care to night staff accordingly
--- NOTE | 2023-02-20 20:30 | NUR ---
Dr Antunez came to see the patient, said that she will not do bone marrow aspiration at this time, due patient is obese and the needle will not reach the bone marrow, she stated procedure can be done as out of patient procedure. stated that she will notify her doctor, Dr Antunez tried to call the daughter but she don't have a working number, will endorse in AM RN to notify daughter when she comes to visit tomorrow.
[2023-02-20] MEDS: DIVALPROEX 250 MG TABLET.DR PO SCH (21:29)
[2023-02-20] MEDS: DONEPEZIL 5 MG TABLET PO SCH (21:29)
[2023-02-21 04:10] VITALS: BP 118/43; TEMP 97.5; O2SAT 97
[2023-02-21] MEDS: PANTOPRAZOLE SODIUM 40 MG TABLET.DR PO SCH ×2 (06:07→18:08)
[2023-02-21] MEDS: LEVOTHYROXINE SODIUM 150 MCG TABLET PO SCH (06:07)
[2023-02-21 06:51] LABS: MEAN CORPUSCULAR HEMOGLOBIN 31.3 uug (24.7-32.8); MEAN CORPUSCULAR VOLUME 96.3 fL (75.5-95.3); PLATELET COUNT (AUTO) 70 K/uL (179-408)
[2023-02-21 06:53] LABS: CARBON DIOXIDE 33 mmol/L (21-32); CHLORIDE 100 mmol/L (98-107); CREATININE 2.3 mg/dL (0.6-1.3); POTASSIUM 4.3 mmol/L (3.5-5.1); UREA NITROGEN, BLOOD 58 mg/dL (7-18)
--- NOTE | 2023-02-21 07:30 | NUR ---
NIGHT NURSE REPORT RECEIVED: 1) MENTAL STATE: AO x 3 a pleasant lady. 2) BREATHING: Patient on 2 liters oxygen via nasal cannula - , sat in the high 90s. No sign of distress observed. 3) SAFETY: Bedbound - Bed in low position, bed alarm activated, floor free of clutter and call smart within reach. 4) CIRCULATION: No signs of cyanosis observed. 5) MOBILITY: Patient on bed rest - needs maximum assistance with all care. 6) BOWEL MOVEMENT: No Bowels at the time of this report. 7) SKIN: Patient has excoriation of the: (i) groin (ii) abdo fold (iii) breast fold (iv) rectum area (v) blister to RUL - SIERRA 8) PLAN: (i) Will continue to treat patient accordingly. (ii) Inform daughter re: MD Hilario update on bone marrow biopsy.
[2023-02-21] MEDS: FLUOXETINE HCL 20 MG CAPSULE PO SCH (08:55)
[2023-02-21] MEDS: MEMANTINE HCL 5 MG TABLET PO SCH (08:55)
[2023-02-21] MEDS: ARIPIPRAZOLE 2 MG TABLET PO SCH (08:55)
[2023-02-21] MEDS: GABAPENTIN 100 MG CAPSULE PO SCH ×3 (08:55→18:08)
[2023-02-21] MEDS: PHENAZOPYRIDINE HCL 100 MG TABLET PO SCH ×2 (08:55→12:38)
[2023-02-21] MEDS: CARVEDILOL 6.25 MG TABLET PO SCH ×2 (08:56→18:11)
[2023-02-21] MEDS: PROTEIN SUPPLEMENT (PROSTAT) 30 ML LIQUID PO SCH (08:56)
[2023-02-21] MEDS: SENNOSIDES 1 TABLET PO SCH (08:56)
[2023-02-21] MEDS: CLOTRIMAZOLE 1% CREAM 30 GM TUBE TOP SCH ×2 (08:56→18:08)
[2023-02-21] MEDS: DOCUSATE SODIUM 100 MG CAPSULE PO SCH ×2 (08:56→17:00)
[2023-02-21] MEDS ORDERED: BUMETANIDE 1 MG TABLET PO SCH (09:30)
--- NOTE | 2023-02-21 10:00 | NUR ---
CALL TO DAUGHTER: 1) Called daughter and advised her that her number does not work on our phones. 2) Lashonda the daughter provided boyfriend's number - on face sheet. 3) Informed Lashonda of MD Hilario's message re:post phoning the bone marrow.
[2023-02-21] MEDS ORDERED: MEMANTINE HCL 5 MG TABLET PO SCH (10:15)
[2023-02-21 11:38] VITALS: BP 103/70; TEMP 97.4; O2SAT 98
[2023-02-21] MEDS: BUMETANIDE 1 MG TABLET PO SCH ×2 (11:39→18:27)
--- NOTE | 2023-02-21 12:03 | NUR ---
ROUNDING - Asleep comfortably in bed, no sign of SOB, or distress observed.
[2023-02-21 13:08] VITALS: O2SAT 98
--- NOTE | 2023-02-21 14:51 | NUR ---
ROUNDING: Patient asleep comfortably, no sign of pain, discomfort, or distress observed.
--- NOTE | 2023-02-21 14:52 | NUR ---
ROUNDING: No change in condition or signs of distress observed.
[2023-02-21 16:27] LABS: EOSINOPHILS % (MANUAL) 3 % (0-8); LYMPHOCYTES % (MANUAL) 5 % (20-40); MONOCYTES % (MANUAL) 11 % (2-10); NEUTROPHILS % (MANUAL) 81 % (42-75)
[2023-02-21 16:45] VITALS: BP 111/73; TEMP 98.5; O2SAT 97
--- NOTE | 2023-02-21 19:21 | NUR ---
END OF SHIFT REPORT: 1) No change in condition or complaints. 2) Will endorse care accordingly to night staff.
[2023-02-21 20:00] VITALS: BP 130/65; TEMP 98.2; O2SAT 96
[2023-02-21] MEDS: DIVALPROEX 250 MG TABLET.DR PO SCH (20:42)
[2023-02-21] MEDS: DONEPEZIL 5 MG TABLET PO SCH (20:43)
[2023-02-21 22:00] VITALS: O2SAT 98
[2023-02-22] MEDS: TEMAZEPAM 15 MG CAPSULE PO PRN (00:11)
[2023-02-22 04:00] VITALS: BP 118/58; TEMP 98.3; O2SAT 94
[2023-02-22] MEDS: PANTOPRAZOLE SODIUM 40 MG TABLET.DR PO SCH ×2 (05:33→16:42)
[2023-02-22] MEDS: LEVOTHYROXINE SODIUM 150 MCG TABLET PO SCH (05:33)
[2023-02-22 06:35] LABS: HEMATOCRIT 25.4 % (31.2-41.9); MEAN CORPUSCULAR HEMOGLOBIN 31.4 uug (24.7-32.8); MEAN CORPUSCULAR VOLUME 95.7 fL (75.5-95.3); PLATELET COUNT (AUTO) 62 K/uL (179-408)
[2023-02-22 06:49] LABS: CARBON DIOXIDE 33 mmol/L (21-32); CHLORIDE 101 mmol/L (98-107); CREATININE 2.2 mg/dL (0.6-1.3); POTASSIUM 4.4 mmol/L (3.5-5.1); UREA NITROGEN, BLOOD 59 mg/dL (7-18)
[2023-02-22 08:00] VITALS: BP 126/63; TEMP 97.8; O2SAT 94
--- NOTE | 2023-02-22 08:00 | NUR ---
Received patient lying in bed awake, alert and oriented. No signs of distress, no complain at this time, oxygen used by patient as needed at 2 lpm via nasal cannula. Patient IV catheter on KELVIN midline, intact. Vital signs taken and recorded. Medications taken and tolerated with meals. Seen and examined by Ms. Ruby Plasencia RETAIL SALES MANAGER, continue plan of care Observed accordingly, needs attended
[2023-02-22] MEDS: CARVEDILOL 6.25 MG TABLET PO SCH ×2 (08:16→17:04)
[2023-02-22] MEDS: GABAPENTIN 100 MG CAPSULE PO SCH ×3 (08:17→16:42)
[2023-02-22] MEDS: MEMANTINE HCL 5 MG TABLET PO SCH (08:17)
[2023-02-22] MEDS: SENNOSIDES 1 TABLET PO SCH (08:17)
[2023-02-22] MEDS: PROTEIN SUPPLEMENT (PROSTAT) 30 ML LIQUID PO SCH (08:17)
[2023-02-22] MEDS: DOCUSATE SODIUM 100 MG CAPSULE PO SCH ×2 (08:17→16:42)
[2023-02-22] MEDS: FLUOXETINE HCL 20 MG CAPSULE PO SCH (08:17)
[2023-02-22] MEDS: BUMETANIDE 1 MG TABLET PO SCH ×2 (08:17→16:42)
[2023-02-22] MEDS: ARIPIPRAZOLE 2 MG TABLET PO SCH (08:18)
[2023-02-22] MEDS: CLOTRIMAZOLE 1% CREAM 30 GM TUBE TOP SCH ×2 (08:19→16:43)
[2023-02-22 12:00] VITALS: BP 99/54; TEMP 97.7; O2SAT 98
[2023-02-22] MEDS: ACETAMINOPHEN 325 MG TABLET PO PRN (13:03)
--- NOTE | 2023-02-22 13:37 | NUR ---
No change in condition from morning assessment, turned from side to side every 2 hours. Keep patient comfortable
[2023-02-22 16:23] VITALS: BP 111/67; TEMP 98.1; O2SAT 98
[2023-02-22 17:28] LABS: EOSINOPHILS % (MANUAL) 1 % (0-8); LYMPHOCYTES % (MANUAL) 5 % (20-40); MONOCYTES % (MANUAL) 9 % (2-10); NEUTROPHILS % (MANUAL) 85 % (42-75)
[2023-02-22 20:00] VITALS: BP 104/69; TEMP 97.4; O2SAT 97
[2023-02-22] MEDS: DIVALPROEX 250 MG TABLET.DR PO SCH (21:03)
[2023-02-22] MEDS: DONEPEZIL 5 MG TABLET PO SCH (21:03)
[2023-02-22 21:49] VITALS: O2SAT 98
--- NOTE | 2023-02-22 23:20 | NUR ---
RECEIVED PT SLEEPING NO SIGNS OF DISTRESS NOTED. PT REPOSITION Q2H TOLERATING WELL NO SIGNS OF DISTRESS NOTED. MEDICATION GIVEN ORDERED FALL AND SAFETY PRECAUTION MAINTAINED. WILL CONTINUE TO MONITOR HOURLY
[2023-02-23 04:40] VITALS: BP 121/69; TEMP 97.4; O2SAT 96
[2023-02-23] MEDS: PANTOPRAZOLE SODIUM 40 MG TABLET.DR PO SCH ×2 (06:24→16:32)
[2023-02-23] MEDS: LEVOTHYROXINE SODIUM 150 MCG TABLET PO SCH (06:24)
[2023-02-23 07:28] LABS: HEMATOCRIT 26.6 % (31.2-41.9); MEAN CORPUSCULAR HEMOGLOBIN 31.1 uug (24.7-32.8); MEAN CORPUSCULAR VOLUME 95.6 fL (75.5-95.3); PLATELET COUNT (AUTO) 62 K/uL (179-408)
[2023-02-23 07:41] LABS: CARBON DIOXIDE 34 mmol/L (21-32); CHLORIDE 99 mmol/L (98-107); CREATININE 2.1 mg/dL (0.6-1.3); UREA NITROGEN, BLOOD 58 mg/dL (7-18)
[2023-02-23 07:47] LABS: FERRITIN 476 ng/mL (8-252)
[2023-02-23 08:10] LABS: IRON, SERUM 62 ug/dL (50-175)
[2023-02-23 08:14] VITALS: BP 108/69; TEMP 97.5; O2SAT 98
[2023-02-23] MEDS: DOCUSATE SODIUM 100 MG CAPSULE PO SCH ×2 (08:44→16:32)
[2023-02-23] MEDS: CARVEDILOL 6.25 MG TABLET PO SCH ×2 (08:44→17:25)
[2023-02-23] MEDS: MEMANTINE HCL 5 MG TABLET PO SCH (08:44)
[2023-02-23] MEDS: FLUOXETINE HCL 20 MG CAPSULE PO SCH (08:44)
[2023-02-23] MEDS: GABAPENTIN 100 MG CAPSULE PO SCH ×3 (08:44→16:32)
[2023-02-23] MEDS: ARIPIPRAZOLE 2 MG TABLET PO SCH (08:44)
[2023-02-23] MEDS: BUMETANIDE 1 MG TABLET PO SCH ×2 (08:44→16:32)
[2023-02-23] MEDS: PROTEIN SUPPLEMENT (PROSTAT) 30 ML LIQUID PO SCH (08:45)
[2023-02-23] MEDS: CLOTRIMAZOLE 1% CREAM 30 GM TUBE TOP SCH ×2 (08:45→16:32)
[2023-02-23 11:35] VITALS: BP 108/51; TEMP 97.6; O2SAT 99
[2023-02-23] MEDS: SENNOSIDES 1 TABLET PO SCH (12:11)
--- NOTE | 2023-02-23 13:18 | NUR ---
Received patient lying in bed awake, alert and oriented. No signs of distress, no complain at this time, oxygen used by patient as needed at 2 lpm via nasal cannula. Patient IV catheter on KELVIN midline, intact. Rodriguez catheter connected to urine bag draining well. On cardiac diet Vital signs taken and recorded. Medications taken and tolerated with meals. Seen and examined by Ms. Ruby Plasencia TEST LAB TECHNICIAN, continue plan of care Observed accordingly, needs attended
[2023-02-23 16:36] VITALS: BP 133/73; TEMP 97.8; O2SAT 96
[2023-02-23 17:51] VITALS: O2SAT 98
[2023-02-23 20:00] VITALS: BP 116/51; TEMP 97.6; O2SAT 98
[2023-02-23] MEDS: DONEPEZIL 5 MG TABLET PO SCH (20:32)
[2023-02-23] MEDS: DIVALPROEX 250 MG TABLET.DR PO SCH (20:32)
[2023-02-23] MEDS: ACETAMINOPHEN 325 MG TABLET PO PRN (20:37)
[2023-02-24 00:32] VITALS: O2SAT 98
[2023-02-24 04:00] VITALS: BP 107/55; TEMP 97.8; O2SAT 99
[2023-02-24] MEDS: LEVOTHYROXINE SODIUM 150 MCG TABLET PO SCH (06:14)
[2023-02-24] MEDS: PANTOPRAZOLE SODIUM 40 MG TABLET.DR PO SCH ×2 (06:14→16:37)
--- NOTE | 2023-02-24 06:31 | NUR ---
Patient slept well throughout the night, no noted signs of distress. Rodriguez cath intact and draining well. KELVIN midline intact and patent. Needs attended.
[2023-02-24 06:36] LABS: HEMATOCRIT 24.8 % (31.2-41.9); MEAN CORPUSCULAR HEMOGLOBIN 31.3 uug (24.7-32.8); MEAN CORPUSCULAR VOLUME 95.9 fL (75.5-95.3); PLATELET COUNT (AUTO) 58 K/uL (179-408)
[2023-02-24 07:02] LABS: ALANINE AMINOTRANSFERASE 10 U/L (14-59); ALKALINE PHOSPHATASE 139 U/L (50-136); ASPARTATE AMINOTRANSFERASE 14 U/L (15-37); BILIRUBIN,TOTAL 0.4 mg/dL (0.2-1.0); CARBON DIOXIDE 38 mmol/L (21-32); CHLORIDE 100 mmol/L (98-107); CREATININE 2.1 mg/dL (0.6-1.3); POTASSIUM 4.1 mmol/L (3.5-5.1); TOTAL PROTEIN, SERUM 5.1 g/dL (6.4-8.2); UREA NITROGEN, BLOOD 56 mg/dL (7-18)
[2023-02-24] MEDS: MEMANTINE HCL 5 MG TABLET PO SCH (08:12)
[2023-02-24] MEDS: SENNOSIDES 1 TABLET PO SCH (08:12)
[2023-02-24] MEDS: FLUOXETINE HCL 20 MG CAPSULE PO SCH (08:12)
[2023-02-24] MEDS: GABAPENTIN 100 MG CAPSULE PO SCH ×3 (08:12→16:37)
[2023-02-24] MEDS: DOCUSATE SODIUM 100 MG CAPSULE PO SCH ×2 (08:13→16:37)
[2023-02-24] MEDS: BUMETANIDE 1 MG TABLET PO SCH ×2 (08:13→16:38)
[2023-02-24] MEDS: CARVEDILOL 6.25 MG TABLET PO SCH ×3 (08:13→17:53)
[2023-02-24] MEDS: PROTEIN SUPPLEMENT (PROSTAT) 30 ML LIQUID PO SCH (08:14)
[2023-02-24] MEDS: ARIPIPRAZOLE 2 MG TABLET PO SCH (08:15)
[2023-02-24] MEDS: CLOTRIMAZOLE 1% CREAM 30 GM TUBE TOP SCH ×2 (08:15→16:38)
--- NOTE | 2023-02-24 09:31 | NUR ---
0730-Rec'd patient in bed, asleep, able to wake up on verbal commands. Patient denies pain, no respiratory distress noted, oxygen via nc @ 2lpm and saturating well. Patient German speaking, able to communicate her needs and follow directions. Offered oral fluids and taken well. Safety measures in place and call light at reach. 0900-Scheduled medications administered as ordered, no ASE noted. Patient eating breakfast at this time, denies GI discomfort, no N/V noted, assist as needed.
[2023-02-24 10:39] LABS: BAND % (MANUAL) 2 % (0-10); EOSINOPHILS % (MANUAL) 1 % (0-8); LYMPHOCYTES % (MANUAL) 15 % (20-40); METAMYELOCYTES % 3 % (0-1); MONOCYTES % (MANUAL) 3 % (2-10); MYELOCYTES % 4 % (0-0); NEUTROPHILS % (MANUAL) 72 % (42-75)
[2023-02-24 11:28] VITALS: BP 100/60; TEMP 97.8; O2SAT 97
[2023-02-24 13:45] VITALS: O2SAT 98
[2023-02-24] MEDS: ACETAMINOPHEN 325 MG TABLET PO PRN (14:01)
[2023-02-24 16:00] VITALS: BP 99/46; TEMP 97.8; O2SAT 99
--- NOTE | 2023-02-24 17:24 | NUR ---
1700-Patient in bed at this time, meal tray delivered and assist to set up meal tray, patient able to feed herself. No physical or respiratory distress noted, patient denies GI discomfort/any pain & jeannine. meals well. Assist provided as needed through out shift; care provided at routine intervals/PRN. Routine rounds and frequent visual checks done. Call lights answered promptly and timely.
[2023-02-24 20:00] VITALS: BP 113/52; TEMP 97.7; O2SAT 98
[2023-02-24] MEDS: DONEPEZIL 5 MG TABLET PO SCH (20:49)
[2023-02-24] MEDS: DIVALPROEX 250 MG TABLET.DR PO SCH (20:50)
[2023-02-25] VITALS (7 sets, daily range): BP systolic 105–109; BP diastolic 52–60; TEMP 97.6–98.8; O2SAT 97–98
[2023-02-25] MEDS: PANTOPRAZOLE SODIUM 40 MG TABLET.DR PO SCH ×2 (06:13→16:19)
[2023-02-25] MEDS: LEVOTHYROXINE SODIUM 150 MCG TABLET PO SCH (06:13)
[2023-02-25 07:10] LABS: HEMATOCRIT 26.1 % (31.2-41.9); MEAN CORPUSCULAR HEMOGLOBIN 31.2 uug (24.7-32.8); MEAN CORPUSCULAR VOLUME 95.4 fL (75.5-95.3); PLATELET COUNT (AUTO) 60 K/uL (179-408)
[2023-02-25 07:17] LABS: CARBON DIOXIDE 37 mmol/L (21-32); CHLORIDE 100 mmol/L (98-107); PHOSPHOROUS 3.4 mg/dL (2.5-4.9); POTASSIUM 3.9 mmol/L (3.5-5.1); UREA NITROGEN, BLOOD 53 mg/dL (7-18)
[2023-02-25 07:38] LABS: MAGNESIUM 1.7 mg/dL (1.8-2.4)
[2023-02-25] MEDS: DOCUSATE SODIUM 100 MG CAPSULE PO SCH ×2 (08:41→16:20)
[2023-02-25] MEDS: GABAPENTIN 100 MG CAPSULE PO SCH ×3 (08:41→16:19)
[2023-02-25] MEDS: FLUOXETINE HCL 20 MG CAPSULE PO SCH (08:42)
[2023-02-25] MEDS: MEMANTINE HCL 5 MG TABLET PO SCH (08:42)
[2023-02-25] MEDS: SENNOSIDES 1 TABLET PO SCH (08:42)
[2023-02-25] MEDS: BUMETANIDE 1 MG TABLET PO SCH ×2 (08:42→16:19)
[2023-02-25] MEDS: CLOTRIMAZOLE 1% CREAM 30 GM TUBE TOP SCH ×2 (08:43→16:20)
[2023-02-25] MEDS: ARIPIPRAZOLE 2 MG TABLET PO SCH (08:45)
[2023-02-25] MEDS: PROTEIN SUPPLEMENT (PROSTAT) 30 ML LIQUID PO SCH (08:47)
[2023-02-25] MEDS ORDERED: MAGNESIUM OXIDE 400 MG TABLET PO ONE (11:00)
[2023-02-25] MEDS: ACETAMINOPHEN 325 MG TABLET PO PRN ×2 (11:18→19:49)
--- NOTE | 2023-02-25 12:13 | NUR ---
0730-Rec'd patient in bed, awake, AOx3, able to follow simple directions and verbalize her needs. Patient denies pain, no SS of respiratory distress noted; cosby catheter in place and draining to gravity, yellow clear urine, patient denies bladder discomfort. Oral fluids encouraged as jeannine. Safety measures in place and call light at reach, encouraged to use it for help when needed with good verbal understanding. 0900-Scheduled medications administered as ordered, no ASE noted, will monitor. Patient eating her breakfast at this time, no swallowing/SS of aspiration; HOB elevated, patient denies GI discomfort, assist as needed.
[2023-02-25] MEDS: CARVEDILOL 6.25 MG TABLET PO SCH (17:13)
--- NOTE | 2023-02-25 19:16 | NUR ---
Patient stable, no changes from her baseline during shift. Care provided at routine intervals and as needed. Patient continues on oxygen at 2LPM and jeannine. well. Safety precautions observed. Needs anticipated and met. Kept clean/comfortable. Call lights answered promptly and needs met timely. Pain well managed and controlled.
[2023-02-25] MEDS: DIVALPROEX 250 MG TABLET.DR PO SCH (20:34)
[2023-02-25] MEDS: DONEPEZIL 5 MG TABLET PO SCH (20:34)
[2023-02-26 04:00] VITALS: BP 125/75; TEMP 97.8; O2SAT 98
--- NOTE | 2023-02-26 05:47 | NUR ---
Patient in stable condition, no acute distress, slept well throughout the night. Rodriguez cath intact with yellow color urine output. Care provided.
[2023-02-26] MEDS: LEVOTHYROXINE SODIUM 150 MCG TABLET PO SCH (06:10)
[2023-02-26] MEDS: PANTOPRAZOLE SODIUM 40 MG TABLET.DR PO SCH ×2 (06:10→17:14)
[2023-02-26 07:13] LABS: CARBON DIOXIDE 37 mmol/L (21-32); CHLORIDE 99 mmol/L (98-107); CREATININE 1.9 mg/dL (0.6-1.3); MAGNESIUM 1.8 mg/dL (1.8-2.4); PHOSPHOROUS 3.3 mg/dL (2.5-4.9); POTASSIUM 4.1 mmol/L (3.5-5.1); UREA NITROGEN, BLOOD 52 mg/dL (7-18)
[2023-02-26 07:24] LABS: HEMATOCRIT 26.2 % (31.2-41.9); MEAN CORPUSCULAR HEMOGLOBIN 31.6 uug (24.7-32.8); MEAN CORPUSCULAR VOLUME 96.2 fL (75.5-95.3); PLATELET COUNT (AUTO) 62 K/uL (179-408)
--- NOTE | 2023-02-26 07:30 | NUR ---
NIGHT NURSE REPORT RECEIVED: 1) MENTAL STATE: AO x 3 a pleasant lady. 2) BREATHING: Patient on 2 liters oxygen via nasal cannula - , sat in the high 90s. No sign of distress observed. 3) SAFETY: (i) Bedbound - Bed in low position, bed alarm activated, floor free of clutter and call smart within reach. (ii) Bleeding precautions - check for signs of bleeding or bruising due to low platelet count - 62 4) CIRCULATION: No signs of cyanosis observed. 5) MOBILITY: Patient on bed rest - needs assistance with all care. 6) BOWEL MOVEMENT: No Bowels at the time of this report. 7) SKIN: Patient has excoriation of the: (i) groin (ii) abdo fold (iii) breast fold (iv) rectum area 8) PLAN: (i) Bleeding precautions (ii) Safety (iii) Pain management
[2023-02-26 07:45] VITALS: O2SAT 99
[2023-02-26] MEDS: FLUOXETINE HCL 20 MG CAPSULE PO SCH (08:55)
[2023-02-26] MEDS: MEMANTINE HCL 5 MG TABLET PO SCH (08:55)
[2023-02-26] MEDS: SENNOSIDES 1 TABLET PO SCH (08:56)
[2023-02-26] MEDS: BUMETANIDE 1 MG TABLET PO SCH ×2 (08:56→17:26)
[2023-02-26] MEDS: GABAPENTIN 100 MG CAPSULE PO SCH ×3 (08:56→17:14)
[2023-02-26] MEDS: ARIPIPRAZOLE 2 MG TABLET PO SCH (08:56)
[2023-02-26] MEDS: DOCUSATE SODIUM 100 MG CAPSULE PO SCH ×2 (08:56→17:14)
[2023-02-26] MEDS: CARVEDILOL 6.25 MG TABLET PO SCH ×2 (08:58→17:14)
[2023-02-26] MEDS: CLOTRIMAZOLE 1% CREAM 30 GM TUBE TOP SCH ×2 (08:59→17:27)
[2023-02-26] MEDS: PROTEIN SUPPLEMENT (PROSTAT) 30 ML LIQUID PO SCH (08:59)
--- NOTE | 2023-02-26 11:00 | NUR ---
ROUNDING - NO concerns, no SOB, or distress observed.
[2023-02-26 11:52] VITALS: BP 111/67; TEMP 97.6; O2SAT 100
--- NOTE | 2023-02-26 13:33 | NUR ---
ROUNDING - No complaints, no sigh of SOB observed, and no sign of distress observed.
[2023-02-26 15:49] VITALS: BP 113/59; TEMP 97.8; O2SAT 98
--- NOTE | 2023-02-26 16:48 | NUR ---
ROUNDING: Patient asleep on and off, and watching tv in between. No sign of sob or distress observed.
--- NOTE | 2023-02-26 18:37 | NUR ---
END OF SHIFT REPORT: 1) No further complaints for the rest of the day. 2) Patient resting in bed comfortably, watching tv, no sign of distress observed. 30 Will endorse care accordingly to night staff who will continue to give care accordingly.
[2023-02-26] MEDS: DONEPEZIL 5 MG TABLET PO SCH (20:47)
[2023-02-26] MEDS: TEMAZEPAM 15 MG CAPSULE PO PRN (20:47)
[2023-02-26] MEDS: DIVALPROEX 250 MG TABLET.DR PO SCH (20:47)
[2023-02-26] MEDS: ACETAMINOPHEN 325 MG TABLET PO PRN (20:47)
[2023-02-26 21:05] VITALS: BP 120/62; TEMP 97.7; O2SAT 99
--- NOTE | 2023-02-26 22:51 | NUR ---
RECEIVED REPORT FROM AM NURSE INGA AND ASSISTED GARLAND MAKER WITH PT CARE. PT IS ALERT AND ORIENTED X4 PULL UP IN BED. NO SIGNS OF DISTRESS NOTED. PT C/O PAIN GIVEN TYLENOL 650MG AND SLEEPING PILL RESTORIL 15MG NO SIGNS OF ADVERSE REACTION FROM MEDICATION WILL CONTINUE TO MONITOR FOR SAFETY. CALL LIGHT WITHIN REACH BED IS LOW. PT IS MONITORED HOURLY.
[2023-02-27 05:38] VITALS: BP 97/59; TEMP 97.4; O2SAT 97
[2023-02-27] MEDS: PANTOPRAZOLE SODIUM 40 MG TABLET.DR PO SCH ×2 (06:02→16:41)
[2023-02-27] MEDS: LEVOTHYROXINE SODIUM 150 MCG TABLET PO SCH (06:02)
[2023-02-27 06:37] LABS: HEMATOCRIT 24.3 % (31.2-41.9); MEAN CORPUSCULAR HEMOGLOBIN 31.1 uug (24.7-32.8); MEAN CORPUSCULAR VOLUME 95.6 fL (75.5-95.3); PLATELET COUNT (AUTO) 59 K/uL (179-408)
[2023-02-27 06:57] LABS: CARBON DIOXIDE 38 mmol/L (21-32); CHLORIDE 101 mmol/L (98-107); CREATININE 1.9 mg/dL (0.6-1.3); MAGNESIUM 1.6 mg/dL (1.8-2.4); PHOSPHOROUS 3.3 mg/dL (2.5-4.9); POTASSIUM 3.8 mmol/L (3.5-5.1); UREA NITROGEN, BLOOD 51 mg/dL (7-18)
--- NOTE | 2023-02-27 07:00 | NUR ---
END SHIFT NOTE: PT SLEPT DURING THE NIGHT NO SIGNS OF DISTRESSED NOTED. PT IS DAILY WT PT WEIGHTS 246 POUNDS. CALL LIGHT WITH IN REACH. WILL ENDORSE TO AM NURSE.
[2023-02-27 07:40] VITALS: O2SAT 98
--- NOTE | 2023-02-27 07:59 | NUR ---
0730-Rec'd patient in bed with HOB elevated. No respiratory distress noted. Patient awake and able to verbalize her needs, denies pain. No unusual observations. FC draining to gravity & yellow urine output. 0800-Breakfast meal tray delivered. HOB elevated. Assist and supervise, patient able to feed herself. Aspiration precautions observed.
[2023-02-27] MEDS: GABAPENTIN 100 MG CAPSULE PO SCH ×3 (08:25→16:52)
[2023-02-27] MEDS: FLUOXETINE HCL 20 MG CAPSULE PO SCH (08:25)
[2023-02-27] MEDS: SENNOSIDES 1 TABLET PO SCH (08:25)
[2023-02-27] MEDS: MEMANTINE HCL 5 MG TABLET PO SCH (08:26)
[2023-02-27] MEDS: BUMETANIDE 1 MG TABLET PO SCH ×2 (08:26→16:41)
[2023-02-27] MEDS: DOCUSATE SODIUM 100 MG CAPSULE PO SCH ×2 (08:26→16:41)
[2023-02-27] MEDS: ARIPIPRAZOLE 2 MG TABLET PO SCH (08:27)
[2023-02-27] MEDS: PROTEIN SUPPLEMENT (PROSTAT) 30 ML LIQUID PO SCH (08:28)
[2023-02-27 08:30] VITALS: BP 119/53; TEMP 97.5; O2SAT 98
[2023-02-27] MEDS: REMEDY ESSENTIAL ZINC PASTE 113 GM TP PRN (08:30)
[2023-02-27] MEDS: CLOTRIMAZOLE 1% CREAM 30 GM TUBE TOP SCH ×2 (08:30→16:57)
[2023-02-27] MEDS: CARVEDILOL 6.25 MG TABLET PO SCH ×2 (08:33→18:10)
[2023-02-27] MEDS: MAGNESIUM SULFATE/D5W 100 ML IV SCH ×2 (09:44→11:10)
[2023-02-27] MEDS ORDERED: MAGN200T9 PO (11:14)
[2023-02-27] MEDS ORDERED: BUME1TAB8 PO (11:14)
[2023-02-27] MEDS ORDERED: POTA8CAP20 PO (11:14)
[2023-02-27 12:02] VITALS: BP 107/58; TEMP 97.9; O2SAT 98
--- NOTE | 2023-02-27 15:30 | NUR ---
0900-Scheduled medications administered as ordered. No ASE noted. Oral fluids taken well. Patient denies any pain or discomfort. Plan to DC patient to [facility]. 1300-Scheduled medication administered. DC pending, DTR (Lashonda) trying to see if patient is accepted to a different facility somewhere in [place].
[2023-02-27] MEDS: DONEPEZIL 5 MG TABLET PO SCH (20:42)
[2023-02-27] MEDS: DIVALPROEX 250 MG TABLET.DR PO SCH (20:42)
[2023-02-27] MEDS: TEMAZEPAM 15 MG CAPSULE PO PRN (20:49)
[2023-02-27 22:15] VITALS: BP 125/69; TEMP 97.5; O2SAT 99
[2023-02-28 04:29] VITALS: BP 120/60; TEMP 97.5; O2SAT 98
[2023-02-28] MEDS: LEVOTHYROXINE SODIUM 150 MCG TABLET PO SCH (05:29)
[2023-02-28] MEDS: PANTOPRAZOLE SODIUM 40 MG TABLET.DR PO SCH ×2 (05:29→17:42)
--- NOTE | 2023-02-28 07:43 | NUR ---
Sleeping, appears comfortable. O2 at 2L/NC
[2023-02-28 07:49] LABS: CARBON DIOXIDE 38 mmol/L (21-32); CHLORIDE 100 mmol/L (98-107); CREATININE 1.8 mg/dL (0.6-1.3); MAGNESIUM 1.9 mg/dL (1.8-2.4); POTASSIUM 3.8 mmol/L (3.5-5.1); UREA NITROGEN, BLOOD 47 mg/dL (7-18)
[2023-02-28] MEDS: FLUOXETINE HCL 20 MG CAPSULE PO SCH (09:28)
[2023-02-28] MEDS: ARIPIPRAZOLE 2 MG TABLET PO SCH (09:28)
[2023-02-28] MEDS: BUMETANIDE 1 MG TABLET PO SCH ×2 (09:28→17:42)
[2023-02-28] MEDS: CARVEDILOL 6.25 MG TABLET PO SCH ×2 (09:28→17:42)
[2023-02-28] MEDS: MEMANTINE HCL 5 MG TABLET PO SCH (09:29)
[2023-02-28] MEDS: DOCUSATE SODIUM 100 MG CAPSULE PO SCH ×2 (09:29→17:42)
[2023-02-28] MEDS: GABAPENTIN 100 MG CAPSULE PO SCH ×3 (09:29→17:42)
[2023-02-28] MEDS: SENNOSIDES 1 TABLET PO SCH (09:29)
[2023-02-28] MEDS: CLOTRIMAZOLE 1% CREAM 30 GM TUBE TOP SCH ×2 (09:30→17:43)
[2023-02-28] MEDS: PROTEIN SUPPLEMENT (PROSTAT) 30 ML LIQUID PO SCH (09:31)
--- NOTE | 2023-02-28 11:00 | NUR ---
Passing gas. No BM. Bed bath given. Repositioned comfortably.
[2023-02-28 13:05] VITALS: BP 116/64; TEMP 97.6; O2SAT 98
[2023-02-28 15:45] VITALS: O2SAT 98
[2023-02-28 16:30] VITALS: BP 100/46; TEMP 98.3; O2SAT 99
--- NOTE | 2023-02-28 17:47 | NUR ---
O2 at 2L/NC with O2 sat of 99%, not in distress. Afebrile.
[2023-02-28 20:00] VITALS: BP 108/47; TEMP 98.3; O2SAT 95
[2023-02-28] MEDS: DIVALPROEX 250 MG TABLET.DR PO SCH (20:30)
[2023-02-28] MEDS: TEMAZEPAM 15 MG CAPSULE PO PRN (20:31)
[2023-02-28] MEDS: DONEPEZIL 5 MG TABLET PO SCH (20:31)
--- NOTE | 2023-02-28 21:04 | NUR ---
RECEIVED PT ALERT AND ORIENTED UP IN BED WATCHING TV PT HAD BM CLEANED AND DIAPER ALONG WITH BARRIER CREAM TOLERATED. WILL CONTINUE TO MONITOR FOR CARE HOURLY AND PRN. PT GIVEN MEDICATION ORDERED NO SIGNS OF DISTRESS NOTED. NO SIGNS OF ADVERSE REACTION FROM MEDICATION.
[2023-03-01] VITALS (7 sets, daily range): BP systolic 101–115; BP diastolic 53–64; TEMP 98–98.5; O2SAT 95–99
[2023-03-01] MEDS: PANTOPRAZOLE SODIUM 40 MG TABLET.DR PO SCH ×2 (06:56→16:00)
[2023-03-01] MEDS: LEVOTHYROXINE SODIUM 150 MCG TABLET PO SCH (06:56)
[2023-03-01 06:58] LABS: HEMATOCRIT 27.1 % (31.2-41.9); MEAN CORPUSCULAR HEMOGLOBIN 31.3 uug (24.7-32.8); MEAN CORPUSCULAR VOLUME 95.6 fL (75.5-95.3); PLATELET COUNT (AUTO) 58 K/uL (179-408)
[2023-03-01 07:17] LABS: CHLORIDE 100 mmol/L (98-107); CREATININE 1.8 mg/dL (0.6-1.3); POTASSIUM 3.9 mmol/L (3.5-5.1); UREA NITROGEN, BLOOD 50 mg/dL (7-18)
[2023-03-01 07:26] LABS: CARBON DIOXIDE 40 mmol/L (21-32)
[2023-03-01] MEDS: MEMANTINE HCL 5 MG TABLET PO SCH (08:45)
[2023-03-01] MEDS: DOCUSATE SODIUM 100 MG CAPSULE PO SCH ×2 (08:45→16:00)
[2023-03-01] MEDS: SENNOSIDES 1 TABLET PO SCH (08:45)
[2023-03-01] MEDS: BUMETANIDE 1 MG TABLET PO SCH ×2 (08:45→16:00)
[2023-03-01] MEDS: FLUOXETINE HCL 20 MG CAPSULE PO SCH (08:45)
[2023-03-01] MEDS: GABAPENTIN 100 MG CAPSULE PO SCH ×3 (08:45→16:00)
[2023-03-01] MEDS: CLOTRIMAZOLE 1% CREAM 30 GM TUBE TOP SCH ×2 (08:47→16:02)
[2023-03-01] MEDS: PROTEIN SUPPLEMENT (PROSTAT) 30 ML LIQUID PO SCH (08:47)
--- NOTE | 2023-03-01 10:03 | NUR ---
Rcvd pt in bed [id number]. No SOB noted. Pt on 02 @2LPM saturating 98%. Routine medications given and pt. tolerated it well. Vital signs WNL. Rodriguez cath draining well by gravity. Denies pain and discomfort at this time.
[2023-03-01] MEDS: ARIPIPRAZOLE 2 MG TABLET PO SCH (10:27)
[2023-03-01] MEDS: CARVEDILOL 6.25 MG TABLET PO SCH ×2 (10:28→17:00)
--- NOTE | 2023-03-01 17:47 | NUR ---
No respiratory distress noted at this time. O2 sat 98% at 2lpm. Keep pt in comfortable position, clean and dry. Treatment on the folds and groin provided. Rodriguez catheter draining by gravity with output of 1200cc with yellow urine.
--- NOTE | 2023-03-01 19:30 | NUR ---
Received patient lying upright in bed. AAOx4. In no acute distress. Denies any pain or SOB. O2 at 2LPM via NC in place. O2 sat at 96%. Midline on right upper arm intact and patent. Needs assessed and attended to. Safety measure initiated and call light within reached.
[2023-03-01] MEDS: DIVALPROEX 250 MG TABLET.DR PO SCH (20:23)
[2023-03-01] MEDS: DONEPEZIL 5 MG TABLET PO SCH (20:23)
[2023-03-02 03:56] VITALS: O2SAT 99
[2023-03-02 04:00] VITALS: BP 101/56; TEMP 98.1; O2SAT 96
--- NOTE | 2023-03-02 05:08 | NUR ---
Slept well during the night. No complain of pain or SOB. Remains on O2 at 2LPM via NC in place. Rodriguez catheter intact and draining via gravity. Safety measure maintained and call light within reached.
[2023-03-02] MEDS: LEVOTHYROXINE SODIUM 150 MCG TABLET PO SCH (06:07)
[2023-03-02] MEDS: PANTOPRAZOLE SODIUM 40 MG TABLET.DR PO SCH ×2 (06:07→16:27)
[2023-03-02 06:30] LABS: HEMATOCRIT 27.8 % (31.2-41.9); MEAN CORPUSCULAR HEMOGLOBIN 31.5 uug (24.7-32.8); MEAN CORPUSCULAR VOLUME 96.1 fL (75.5-95.3); PLATELET COUNT (AUTO) 59 K/uL (179-408)
[2023-03-02 07:04] LABS: CHLORIDE 100 mmol/L (98-107); CREATININE 1.8 mg/dL (0.6-1.3); POTASSIUM 3.7 mmol/L (3.5-5.1); UREA NITROGEN, BLOOD 46 mg/dL (7-18)
[2023-03-02 07:19] LABS: CARBON DIOXIDE 40 mmol/L (21-32)
[2023-03-02] MEDS: FLUOXETINE HCL 20 MG CAPSULE PO SCH (09:02)
[2023-03-02] MEDS: DOCUSATE SODIUM 100 MG CAPSULE PO SCH ×2 (09:03→16:27)
[2023-03-02] MEDS: MEMANTINE HCL 5 MG TABLET PO SCH (09:03)
[2023-03-02] MEDS: GABAPENTIN 100 MG CAPSULE PO SCH ×3 (09:03→16:27)
[2023-03-02] MEDS: CARVEDILOL 6.25 MG TABLET PO SCH ×2 (09:03→17:06)
[2023-03-02] MEDS: SENNOSIDES 1 TABLET PO SCH (09:03)
[2023-03-02] MEDS: PROTEIN SUPPLEMENT (PROSTAT) 30 ML LIQUID PO SCH (09:04)
[2023-03-02] MEDS: ARIPIPRAZOLE 2 MG TABLET PO SCH (09:05)
[2023-03-02] MEDS: CLOTRIMAZOLE 1% CREAM 30 GM TUBE TOP SCH ×2 (09:05→16:28)
--- NOTE | 2023-03-02 10:05 | NUR ---
Rcvd pt in bed at 2lpm of oxygen saturating 98%. No sob or any respiratory distress. Afebrile. F/C draining via gravity. Consumed breakfast 90%. Routine meds given and pt tolerated it.
[2023-03-02 10:38] LABS: EOSINOPHILS % (MANUAL) 1 % (0-8); LYMPHOCYTES % (MANUAL) 5 % (20-40); MONOCYTES % (MANUAL) 9 % (2-10); NEUTROPHILS % (MANUAL) 85 % (42-75)
[2023-03-02 11:07] VITALS: BP 103/55; TEMP 98.2; O2SAT 98
[2023-03-02 15:41] VITALS: BP 116/70; TEMP 97.6; O2SAT 97
[2023-03-02 17:14] VITALS: O2SAT 99
--- NOTE | 2023-03-02 18:30 | NUR ---
No respiratory distress noted at this time. Keep the pt clean and dry. Skin care provided. Routine medications given and pt tolerated it well. Rodriguez Cath draining very well via gravity.
--- NOTE | 2023-03-02 19:30 | NUR ---
Received pt lying upright on bed. AAOX4, denies pain or SOB. O2 2LPM Via nasal canula in place, O2 at 98%. Midline is on the right upper arm intact and patent. Patient needs assessed and attended. Safety measure initiated and call light within reached.
[2023-03-02] MEDS: DONEPEZIL 5 MG TABLET PO SCH (20:33)
[2023-03-02] MEDS: DIVALPROEX 250 MG TABLET.DR PO SCH (20:33)
[2023-03-02 21:23] VITALS: BP 141/75; TEMP 98.7; O2SAT 98
[2023-03-03] VITALS (7 sets, daily range): BP systolic 90–124; BP diastolic 48–72; TEMP 97.6–98.5; O2SAT 96–99
[2023-03-03] MEDS: LEVOTHYROXINE SODIUM 150 MCG TABLET PO SCH (06:03)
[2023-03-03] MEDS: PANTOPRAZOLE SODIUM 40 MG TABLET.DR PO SCH ×2 (06:03→16:16)
--- NOTE | 2023-03-03 06:32 | NUR ---
Slept well during the night. No complain of pain or SOB. Kept clean and dry. Rodriguez catheter intact and draining via gravity. Safety measure maintained and call light within reached.
[2023-03-03 06:49] LABS: HEMATOCRIT 27.7 % (31.2-41.9); MEAN CORPUSCULAR HEMOGLOBIN 31.7 uug (24.7-32.8); MEAN CORPUSCULAR VOLUME 95.7 fL (75.5-95.3); PLATELET COUNT (AUTO) 57 K/uL (179-408)
[2023-03-03 07:06] LABS: CARBON DIOXIDE 39 mmol/L (21-32); CHLORIDE 99 mmol/L (98-107); CREATININE 1.8 mg/dL (0.6-1.3); POTASSIUM 3.9 mmol/L (3.5-5.1); UREA NITROGEN, BLOOD 44 mg/dL (7-18)
[2023-03-03] MEDS: CARVEDILOL 6.25 MG TABLET PO SCH ×2 (08:00→17:37)
[2023-03-03] MEDS: FLUOXETINE HCL 20 MG CAPSULE PO SCH (08:22)
[2023-03-03] MEDS: MEMANTINE HCL 5 MG TABLET PO SCH (08:22)
[2023-03-03] MEDS: GABAPENTIN 100 MG CAPSULE PO SCH ×3 (08:22→16:16)
[2023-03-03] MEDS: DOCUSATE SODIUM 100 MG CAPSULE PO SCH ×2 (08:22→16:16)
[2023-03-03] MEDS: CLOTRIMAZOLE 1% CREAM 30 GM TUBE TOP SCH ×2 (08:23→16:17)
[2023-03-03] MEDS: ARIPIPRAZOLE 2 MG TABLET PO SCH (08:25)
[2023-03-03] MEDS: PROTEIN SUPPLEMENT (PROSTAT) 30 ML LIQUID PO SCH (08:26)
[2023-03-03] MEDS: SENNOSIDES 1 TABLET PO SCH (09:08)
--- NOTE | 2023-03-03 09:45 | NUR ---
Rcvd pt in bed in semi-fowlers position. Oxygen in 2lpm saturating 98%. Breakfast 90% consumed. Keep pt clean and dry. F/C draining via gravity with clear-yellow urine. Held b/p med. Needs attended.
[2023-03-03 11:30] LABS: EOSINOPHILS % (MANUAL) 1 % (0-8); LYMPHOCYTES % (MANUAL) 10 % (20-40); MONOCYTES % (MANUAL) 4 % (2-10); NEUTROPHILS % (MANUAL) 85 % (42-75)
--- NOTE | 2023-03-03 17:54 | NUR ---
Kept pt. comfortable, clean, and dry. No SOB noted. Routine meds given and pt tolerated them well. F/C draining well via gravity with output of 500cc. Skin care provided. Needs attended.
--- NOTE | 2023-03-03 19:30 | NUR ---
Received patient lying upright in bed. AAOx4. In no acute distress. Denies any pain or SOB. O2 at 2LPM via NC in place. O2 sat at 98%. Rodriguez catheter intact and draining via gravity. Needs assessed and attended to. Safety measure initiated and call light within reached.
[2023-03-03] MEDS: DONEPEZIL 5 MG TABLET PO SCH (20:27)
[2023-03-03] MEDS: DIVALPROEX 250 MG TABLET.DR PO SCH (20:27)
[2023-03-04 04:00] VITALS: BP 120/49; TEMP 98.2; O2SAT 98
--- NOTE | 2023-03-04 06:00 | NUR ---
Patient Slept well during the night. Kept clean and dry. Rodriguez catheter intact and draining via gravity. Safety measure maintained and call light within reached.
[2023-03-04] MEDS: PANTOPRAZOLE SODIUM 40 MG TABLET.DR PO SCH (06:12)
[2023-03-04] MEDS: LEVOTHYROXINE SODIUM 150 MCG TABLET PO SCH (06:12)
[2023-03-04 07:31] LABS: HEMATOCRIT 25.4 % (31.2-41.9); MEAN CORPUSCULAR HEMOGLOBIN 31.2 uug (24.7-32.8); MEAN CORPUSCULAR VOLUME 95.5 fL (75.5-95.3)
[2023-03-04 07:39] LABS: CARBON DIOXIDE 36 mmol/L (21-32); CHLORIDE 99 mmol/L (98-107); CREATININE 1.7 mg/dL (0.6-1.3); POTASSIUM 3.8 mmol/L (3.5-5.1); UREA NITROGEN, BLOOD 42 mg/dL (7-18)
[2023-03-04 07:56] LABS: PLATELET COUNT (AUTO) 52 K/uL (179-408)
[2023-03-04] MEDS: DOCUSATE SODIUM 100 MG CAPSULE PO SCH (08:43)
[2023-03-04] MEDS: GABAPENTIN 100 MG CAPSULE PO SCH (08:43)
[2023-03-04] MEDS: MEMANTINE HCL 5 MG TABLET PO SCH (08:43)
[2023-03-04] MEDS: FLUOXETINE HCL 20 MG CAPSULE PO SCH (08:44)
[2023-03-04] MEDS: ARIPIPRAZOLE 2 MG TABLET PO SCH (08:46)
[2023-03-04] MEDS: REMEDY ESSENTIAL ZINC PASTE 113 GM TP PRN (08:46)
[2023-03-04] MEDS: CLOTRIMAZOLE 1% CREAM 30 GM TUBE TOP SCH (08:46)
[2023-03-04] MEDS: PROTEIN SUPPLEMENT (PROSTAT) 30 ML LIQUID PO SCH (08:51)
[2023-03-04] MEDS: CARVEDILOL 6.25 MG TABLET PO SCH (08:51)
[2023-03-04] MEDS ORDERED: BUME2TAB7 PO (10:23)
[2023-03-04 10:26] LABS: NEUTROPHILS % (MANUAL) 59 % (42-75)
[2023-03-04 10:27] LABS: BAND % (MANUAL) 2 % (0-10); EOSINOPHILS % (MANUAL) 2 % (0-8); LYMPHOCYTES % (MANUAL) 23 % (20-40); MONOCYTES % (MANUAL) 18 % (2-10)
[2023-03-04 11:23] VITALS: BP 105/57; TEMP 98; O2SAT 100
--- NOTE | 2023-03-04 12:40 | NUR ---
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 Ambulance EMT techs doesnt speak ic[place]ic fluently but able to make understand "little [place]" EMT TECH states that they dont carry oxygen "but we have air conditioner inside the van." Told EMT tech that I can let them [place] our o2 tank but they will need to bring it back - asked for ID/ Drivers license from EMT's. "we dont carry drivers license." Had [facility] hematology speak with their ambulance supervisor printing and stamping - NIK [phone] per supervisor printing and stamping its ok to let them [place] the o2 tank. Attempted to give report to [facility] - secraty states that their supervisor printing and stamping is on lunch and states that it will be ok to call back for report at a later time. 1250 Pt discharge pt on o2 @ 2 liters with sat of 97%. Pt is in no acute distress.
--- NOTE | 2023-03-04 14:21 | NUR ---
Spoke with [employer] handling warehouse supervisor gave report and notified that pt refused to have her midline taken off earlier. Pt stated that " We had a hard time inserting an iv on me." Even after discussing that pt Doesn't need it anymore pt continues to refused for midline to be taken off.
[2023-03-04] MEDS ORDERED: SENNOSIDES 1 TABLET PO SCH (21:00)
== END 2023-03-04 12:50 | DRG 291 ==
LOC: ER 18:35 → TELE3 22:44 → MEDSURG3 02-19 07:39
PROVIDERS: ADMIT Internal Medicine; ATTEND Nurse Practitioner Acute Care
PROC: 05H533Z Insertion of Infusion Device into Right Subclavian Vein, Percutaneous Approach (ICD-10-PCS; principal; 2023-02-13)
PROC: B546ZZA Ultrasonography of Right Subclavian Vein, Guidance (ICD-10-PCS; 2023-02-13)
DX: I13.0 Hypertensive heart and chronic kidney disease with heart failure and stage 1 through stage 4 chronic kidney disease, or unspecified chronic kidney disease (principal); E43 Unspecified severe protein-calorie malnutrition; I50.43 Acute on chronic combined systolic (congestive) and diastolic (congestive) heart failure; J96.01 Acute respiratory failure with hypoxia; N17.0 Acute kidney failure with tubular necrosis; D61.818 Other pancytopenia; E87.3 Alkalosis; J98.11 Atelectasis; N18.9 Chronic kidney disease, unspecified; D50.9 Iron deficiency anemia, unspecified; E03.9 Hypothyroidism, unspecified; E78.5 Hyperlipidemia, unspecified; E83.42 Hypomagnesemia; I25.10 Atherosclerotic heart disease of native coronary artery without angina pectoris; I42.9 Cardiomyopathy, unspecified; K44.9 Diaphragmatic hernia without obstruction or gangrene; K57.30 Diverticulosis of large intestine without perforation or abscess without bleeding; Z20.822 Contact with and (suspected) exposure to COVID-19; Z95.1 Presence of aortocoronary bypass graft; Z95.810 Presence of automatic (implantable) cardiac defibrillator; Z98.84 Bariatric surgery status; I48.0 Paroxysmal atrial fibrillation; D53.9 Nutritional anemia, unspecified; E87.6 Hypokalemia; E88.09 Other disorders of plasma-protein metabolism, not elsewhere classified; Z79.01 Long term (current) use of anticoagulants; E66.01 Morbid (severe) obesity due to excess calories; F25.9 Schizoaffective disorder, unspecified; M19.90 Unspecified osteoarthritis, unspecified site; M81.0 Age-related osteoporosis without current pathological fracture; F32.A Depression, unspecified; F41.9 Anxiety disorder, unspecified; D69.6 Thrombocytopenia, unspecified; D72.821 Monocytosis (symptomatic); K76.1 Chronic passive congestion of liver; I07.1 Rheumatic tricuspid insufficiency; E11.22 Type 2 diabetes mellitus with diabetic chronic kidney disease; Z68.37 Body mass index [BMI] 37.0-37.9, adult
CPT/HCPCS: 36415; 70030-TC; 71045; 71270; 80164; 82378; 82746; 82747; 82784; 83550; 83735; 83970; 84100; 84155; 84165; 84443; 84480; 84484; 84550; 85014; 85025; 85610; 85730; 86038; 86140; 86334; 86430; 86706; 86803; 87040; 87340; 87806; 88185; 93005; 93307; 94760; A6209; A6213; G0378; J1940; J2543; J2916; J3370; J3475; J3480; J3490; J7040; J7050; Q9967

== ENCOUNTER 2023-11-02 17:51 | Inpatient (IN) | payer MEDICARE, OTHER ==
[~2023-11-02] VITALS: Ht 165.1 cm; Wt 72.1 kg
[~2023-11-02 17:51] MED LIST: AMIO100T4 PO; APIX2.5T PO; ARIP2TAB3 PO; ASPI81TA31 PO; BENZ-13 PO; BUME1TAB8 PO; BUME2TAB7 PO; CARV6.252 PO; CRAN250C PO; DIVA-78 PO; DOCU-141 PO; DONE5TAB34 PO; ERGO500040 PO; ESOM20CA PO; FLUO40CA49 PO; GABA-532 PO; LEVO150T PO; LIDOCAINE PATCH 5%; MAGN200T9 PO; MEMA10TA PO; ONDA4TAB5 PO; POTA8CAP20 PO; SENN8.6T19 PO; TRAM50TA2 PO
[2023-11-02 18:27] LABS: ABG BASE EXCESS 7.7 mmol/L (-2.0-2.0); ABG HCO3 31.5 mmol/L (22.0-26.0); ABG PCO2 41.1 mmHg (35.0-48.0); ABG PH 7.502 (7.340-7.440); ABG PO2 102.4 mmHg (75.0-100.0); ABG TOTAL HEMOGLOBIN 11.8 G/dL (12.0-16.0); AaDO2 98.1 mmHg; COHb 0.6 % (0.0-3.9); MetHb 0.3 % (0.0-1.5); O2Hb 97.2 % (94.0-97.0)
[2023-11-02] MEDS ORDERED: AZIT250T13 PO (18:28)
[2023-11-02] MEDS ORDERED: CPM/1TAB PO (18:28)
[2023-11-02] MEDS ORDERED: EPOE200012 IJ (18:28)
[2023-11-02] MEDS ORDERED: FERR325T30 PO (18:28)
[2023-11-02] MEDS ORDERED: MAGN400O6 PO (18:28)
[2023-11-02] MEDS ORDERED: VANCOMYCIN IV 200 ML ONE (18:41)
[2023-11-02 18:44] LABS: CALCIUM 8.5 mg/dL (8.5-10.1); CARBON DIOXIDE 33 mmol/L (21-32); CHLORIDE 100 mmol/L (98-107); CREATININE 1.5 mg/dL (0.6-1.3); GLUCOSE 101 mg/dL (74-106); SODIUM SERUM 142 mmol/L (136-145); UREA NITROGEN, BLOOD 30 mg/dL (7-18)
[2023-11-02 18:49] LABS: BASOPHILS % (AUTO) 0.3 % (0.0-2.0); DIFFERENTIAL COMMENT 0; EOSINOPHILS # (AUTO) 0.2 K/uL (0.0-0.7); EOSINOPHILS % (AUTO) 2.4 % (0.0-7.0); HEMOGLOBIN 10.8 g/dL (10.9-14.3); LYMPHOCYTES # (AUTO) 0.3 K/uL (0.8-4.8); LYMPHOCYTES % (AUTO) 4.1 % (20.5-51.5); MEAN CORPUSCULAR HEMOGLOBIN 30.1 uug (24.7-32.8); MEAN CORPUSCULAR HGB CONC 33 g/dL (32.3-35.6); MEAN CORPUSCULAR VOLUME 91.4 fL (75.5-95.3); MONOCYTES % (AUTO) 13.9 % (0.0-11.0); NEUTROPHILS # (AUTO) 5.7 K/uL (1.8-8.9); NEUTROPHILS % (AUTO) 79.3 % (38.5-71.5); PLATELET COUNT (AUTO) 78 K/uL (179-408); RED CELL DISTRIBUTION WIDTH 16.2 % (12.3-17.7); WHITE BLOOD COUNT (AUTO) 7.2 K/uL (3.8-11.8)
[2023-11-02] MEDS: VANCOMYCIN IV 1,000 MG in IV DEXTROSE 5% 250 ML IV ONE (18:49)
[2023-11-02 18:57] LABS: ALANINE AMINOTRANSFERASE 12 U/L (14-59); ALBUMIN 2.8 g/dL (3.4-5.0); ALKALINE PHOSPHATASE 126 U/L (50-136); ASPARTATE AMINOTRANSFERASE 13 U/L (15-37); BILIRUBIN,DIRECT 0.2 mg/dL (0.0-0.2); BILIRUBIN,TOTAL 0.7 mg/dL (0.2-1.0); NT-PRO BNP 9739 pg/mL (0-125); TOTAL PROTEIN, SERUM 6.1 g/dL (6.4-8.2)
[2023-11-02] MEDS ORDERED: POTASSIUM CHLORIDE 20 MEQ POWDER PACKET ONE (19:51)
[2023-11-02] MEDS: POTASSIUM CHLORIDE 20 MEQ TAB.PRT.SR PO ONE ×2 (19:54→22:35)
[2023-11-02] MEDS ORDERED: CEFEPIME HCL 1 G VIAL ONE (20:55)
[2023-11-02] MEDS ORDERED: TRAMADOL HCL 50 MG TABLET PO PRN (21:00)
[2023-11-02] MEDS: CEFEPIME HCL 1 G in IV DEXTROSE 5% 50 ML IV ONE (21:05)
[2023-11-02] MEDS ORDERED: REMEDY ESSENTIAL ZINC PASTE 113 GM TP PRN (21:30)
[2023-11-02] MEDS ORDERED: MAGNESIUM HYDROXIDE 30 ML LIQUID UDC PO PRN (21:30)
[2023-11-02] MEDS ORDERED: ACETAMINOPHEN 325 MG TABLET PO PRN (21:30)
[2023-11-02] MEDS ORDERED: ONDANSETRON 4 MG/2 ML VIAL IV PRN (21:30)
[2023-11-02 22:00] VITALS: BP 124/72; TEMP 98.4; O2SAT 100
[2023-11-02] MEDS: FUROSEMIDE 40 MG/4 ML VIAL IV SCH (22:34)
[2023-11-02] MEDS: DONEPEZIL 5 MG TABLET PO SCH (22:34)
[2023-11-02] MEDS: ZOLPIDEM 5 MG TABLET PO PRN (22:34)
[2023-11-02] MEDS: DIVALPROEX 500 MG TABLET.DR PO SCH (22:35)
[2023-11-03] VITALS (7 sets, daily range): BP systolic 101–125; BP diastolic 49–80; TEMP 97.5–98.3; O2SAT 98–99
[2023-11-03] MEDS: LEVOTHYROXINE SODIUM 175 MCG TABLET PO SCH (06:40)
[2023-11-03] MEDS: PANTOPRAZOLE SODIUM 40 MG TABLET.DR PO SCH (06:40)
[2023-11-03 06:56] LABS: BASOPHILS % (AUTO) 0.4 % (0.0-2.0); EOSINOPHILS # (AUTO) 0.2 K/uL (0.0-0.7); EOSINOPHILS % (AUTO) 2.9 % (0.0-7.0); HEMATOCRIT 33.9 % (31.2-41.9); HEMOGLOBIN 11.1 g/dL (10.9-14.3); LYMPHOCYTES # (AUTO) 0.3 K/uL (0.8-4.8); LYMPHOCYTES % (AUTO) 4.6 % (20.5-51.5); MEAN CORPUSCULAR HEMOGLOBIN 30.1 uug (24.7-32.8); MEAN CORPUSCULAR HGB CONC 33 g/dL (32.3-35.6); MEAN CORPUSCULAR VOLUME 92.1 fL (75.5-95.3); MONOCYTES # (AUTO) 0.9 K/uL (0.1-1.30); MONOCYTES % (AUTO) 13.6 % (0.0-11.0); NEUTROPHILS # (AUTO) 5.2 K/uL (1.8-8.9); NEUTROPHILS % (AUTO) 78.5 % (38.5-71.5); PLATELET COUNT (AUTO) 82 K/uL (179-408); RED BLOOD CELL COUNT(AUTO) 3.68 MIL/uL (3.63-4.92); RED CELL DISTRIBUTION WIDTH 16.4 % (12.3-17.7); WHITE BLOOD COUNT (AUTO) 6.6 K/uL (3.8-11.8)
[2023-11-03] MEDS ORDERED: LEVOTHYROXINE SODIUM 150 MCG TABLET PO SCH (07:00)
[2023-11-03 07:10] LABS: DIFFERENTIAL COMMENT 1
[2023-11-03 07:11] LABS: CALCIUM 8.6 mg/dL (8.5-10.1); CARBON DIOXIDE 33 mmol/L (21-32); CHLORIDE 103 mmol/L (98-107); CREATININE 1.5 mg/dL (0.6-1.3); GLUCOSE 79 mg/dL (74-106); MAGNESIUM 1.7 mg/dL (1.8-2.4); PHOSPHOROUS 3.4 mg/dL (2.5-4.9); POTASSIUM 4.8 mmol/L (3.5-5.1); SODIUM SERUM 140 mmol/L (136-145); UREA NITROGEN, BLOOD 30 mg/dL (7-18)
[2023-11-03] MEDS: DOCUSATE SODIUM 100 MG CAPSULE PO SCH (08:30)
[2023-11-03] MEDS: CARVEDILOL 6.25 MG TABLET PO SCH (08:30)
[2023-11-03] MEDS: DIVALPROEX 250 MG TABLET.DR PO SCH (08:30)
[2023-11-03] MEDS: SENNOSIDES 1 TABLET PO SCH (08:30)
[2023-11-03] MEDS: GABAPENTIN 100 MG CAPSULE PO SCH (08:31)
[2023-11-03] MEDS: AMIODARONE HCL 200 MG TABLET PO SCH (08:31)
[2023-11-03] MEDS: MEMANTINE HCL 10 MG TABLET PO SCH (08:31)
[2023-11-03] MEDS: ASPIRIN 81 MG TAB.CHEW PO SCH (09:00)
[2023-11-03] MEDS ORDERED: FLUOXETINE HCL 20 MG CAPSULE PO SCH (09:00)
[2023-11-03] MEDS: APIXABAN 2.5 MG TABLET PO SCH (09:00)
[2023-11-03] MEDS ORDERED: ARIPIPRAZOLE 2 MG TABLET PO SCH ×2 (09:00)
[2023-11-03] MEDS ORDERED: ASPIRIN 81 MG TAB.CHEW PO SCH (09:00)
[2023-11-03] MEDS: BUMETANIDE INJ 6 MG in IV DEXTROSE 5% 36 ML IV ONE (09:47)
[2023-11-03] MEDS ORDERED: DIVA-76 PO (11:25)
[2023-11-03] MEDS ORDERED: FLUO20CA36 PO (11:27)
[2023-11-03] MEDS ORDERED: LEVO175T7 PO (11:27)
[2023-11-03] MEDS ORDERED: LIDO30AD10 TD (11:29)
[2023-11-03] MEDS ORDERED: EPOE1VIA12 IJ (11:31)
[2023-11-03] MEDS ORDERED: CRAN450T9 PO (11:33)
[2023-11-03] MEDS: FLUOXETINE HCL 20 MG CAPSULE PO SCH (12:03)
[2023-11-03] MEDS: MAGNESIUM OXIDE 400 MG TABLET PO ONE (12:03)
[2023-11-04 05:22] VITALS: O2SAT 98
[2023-11-04 06:15] VITALS: BP 105/56; TEMP 97.8; O2SAT 99
[2023-11-04 07:21] LABS: CALCIUM 9.1 mg/dL (8.5-10.1); CARBON DIOXIDE 36 mmol/L (21-32); CHLORIDE 104 mmol/L (98-107); CREATININE 1.4 mg/dL (0.6-1.3); GLUCOSE 83 mg/dL (74-106); MAGNESIUM 1.8 mg/dL (1.8-2.4); SODIUM SERUM 144 mmol/L (136-145); UREA NITROGEN, BLOOD 32 mg/dL (7-18)
[2023-11-04] MEDS ORDERED: BUMETANIDE INJ 6 MG in IV DEXTROSE 5% 36 ML IV ONE (10:00)
[2023-11-04] MEDS: BUMETANIDE INJ 6 MG in IV DEXTROSE 5% 36 ML IV ONE (11:20)
[2023-11-04 11:32] VITALS: BP 96/57; TEMP 97.9; O2SAT 99
[2023-11-04] MEDS: GUAIFENESIN/DEXTROMETHORPHAN 5 ML UDC PO PRN (12:05)
[2023-11-04 15:32] VITALS: BP 102/66; TEMP 97.8; O2SAT 98
[2023-11-04 16:33] VITALS: O2SAT 98
[2023-11-04 20:00] VITALS: BP_SYST 123; BP_DIAS 3; BP_DIAS 73; TEMP 98.4; O2SAT 94
[2023-11-05] VITALS: BP 126/76; TEMP 98.7; O2SAT 96
[2023-11-05 02:26] VITALS: O2SAT 98
[2023-11-05 04:00] VITALS: BP 124/70; TEMP 97.8; O2SAT 99
[2023-11-05 07:34] LABS: BASOPHILS % (AUTO) 0.9 % (0.0-2.0); EOSINOPHILS # (AUTO) 0.2 K/uL (0.0-0.7); EOSINOPHILS % (AUTO) 4.2 % (0.0-7.0); HEMATOCRIT 31.9 % (31.2-41.9); HEMOGLOBIN 10.4 g/dL (10.9-14.3); LYMPHOCYTES # (AUTO) 0.5 K/uL (0.8-4.8); LYMPHOCYTES % (AUTO) 10.4 % (20.5-51.5); MEAN CORPUSCULAR HEMOGLOBIN 29.9 uug (24.7-32.8); MEAN CORPUSCULAR HGB CONC 33 g/dL (32.3-35.6); MEAN CORPUSCULAR VOLUME 91.5 fL (75.5-95.3); MONOCYTES # (AUTO) 0.6 K/uL (0.1-1.30); MONOCYTES % (AUTO) 12.3 % (0.0-11.0); NEUTROPHILS # (AUTO) 3.3 K/uL (1.8-8.9); NEUTROPHILS % (AUTO) 72.2 % (38.5-71.5); PLATELET COUNT (AUTO) 81 K/uL (179-408); RED BLOOD CELL COUNT(AUTO) 3.48 MIL/uL (3.63-4.92); RED CELL DISTRIBUTION WIDTH 15.8 % (12.3-17.7); WHITE BLOOD COUNT (AUTO) 4.5 K/uL (3.8-11.8)
[2023-11-05 07:55] VITALS: BP 137/79; TEMP 97.6; O2SAT 98
[2023-11-05 07:57] LABS: DIFFERENTIAL COMMENT 1
[2023-11-05 08:03] LABS: ALANINE AMINOTRANSFERASE 11 U/L (14-59); ALBUMIN 2.5 g/dL (3.4-5.0); ALKALINE PHOSPHATASE 118 U/L (50-136); ASPARTATE AMINOTRANSFERASE 18 U/L (15-37); BILIRUBIN,TOTAL 0.5 mg/dL (0.2-1.0); CALCIUM 8.9 mg/dL (8.5-10.1); CARBON DIOXIDE 38 mmol/L (21-32); CHLORIDE 104 mmol/L (98-107); CREATININE 1.5 mg/dL (0.6-1.3); GLUCOSE 86 mg/dL (74-106); MAGNESIUM 1.8 mg/dL (1.8-2.4); PHOSPHOROUS 3.1 mg/dL (2.5-4.9); POTASSIUM 3.6 mmol/L (3.5-5.1); SODIUM SERUM 144 mmol/L (136-145); TOTAL PROTEIN, SERUM 5.6 g/dL (6.4-8.2); UREA NITROGEN, BLOOD 32 mg/dL (7-18)
[2023-11-05] MEDS: BUMETANIDE 1 MG TABLET PO SCH (10:23)
[2023-11-05 11:47] VITALS: BP 107/66; TEMP 97.7; O2SAT 98
[2023-11-05] MEDS ORDERED: GUAI5SYR PO (12:00)
[2023-11-05] MEDS ORDERED: ASPI-1101 PO (12:00)
[2023-11-05 16:07] VITALS: BP 128/76; TEMP 97.9; O2SAT 99
== END 2023-11-05 16:55 | DRG 291 ==
LOC: ER 17:53 → TELE3 20:56 → MEDSURG3 11-03 13:59 → TELE3 11-04 09:13
PROVIDERS: ADMIT Internal Medicine; ATTEND Internal Medicine
DX: I13.0 Hypertensive heart and chronic kidney disease with heart failure and stage 1 through stage 4 chronic kidney disease, or unspecified chronic kidney disease (principal); E43 Unspecified severe protein-calorie malnutrition; I50.43 Acute on chronic combined systolic (congestive) and diastolic (congestive) heart failure; J96.01 Acute respiratory failure with hypoxia; N17.0 Acute kidney failure with tubular necrosis; I33.0 Acute and subacute infective endocarditis; I48.0 Paroxysmal atrial fibrillation; D46.9 Myelodysplastic syndrome, unspecified; Z95.810 Presence of automatic (implantable) cardiac defibrillator; Z95.1 Presence of aortocoronary bypass graft; F25.9 Schizoaffective disorder, unspecified; N18.2 Chronic kidney disease, stage 2 (mild); J20.8 Acute bronchitis due to other specified organisms; Z95.2 Presence of prosthetic heart valve; I08.3 Combined rheumatic disorders of mitral, aortic and tricuspid valves; K57.30 Diverticulosis of large intestine without perforation or abscess without bleeding; K44.9 Diaphragmatic hernia without obstruction or gangrene; Z98.84 Bariatric surgery status; G31.84 Mild cognitive impairment of uncertain or unknown etiology; Z79.890 Hormone replacement therapy; E83.42 Hypomagnesemia; R23.3 Spontaneous ecchymoses; M81.0 Age-related osteoporosis without current pathological fracture; E78.5 Hyperlipidemia, unspecified; E88.09 Other disorders of plasma-protein metabolism, not elsewhere classified; E87.6 Hypokalemia; E03.9 Hypothyroidism, unspecified; D50.9 Iron deficiency anemia, unspecified; I25.10 Atherosclerotic heart disease of native coronary artery without angina pectoris; G62.9 Polyneuropathy, unspecified; K76.1 Chronic passive congestion of liver; I42.9 Cardiomyopathy, unspecified; N31.9 Neuromuscular dysfunction of bladder, unspecified
CPT/HCPCS: 36415; 71045; 76770; 83605; 83735; 84100; 84484; 85025; 85730; 87040; 93005; 93307; G0378; J0692; J1940; J3370; J3490

== ENCOUNTER 2024-08-19 20:10 | Inpatient (IN) | payer MEDICARE, OTHER ==
[~2024-08-19] VITALS: Ht 160 cm; Wt 84.0 kg
[~2024-08-19 20:10] MED LIST changes: -ARIP2TAB3 PO; +ASPI-1101 PO; -ASPI81TA31 PO; -BUME2TAB7 PO; +CPM/1TAB PO; -CRAN250C PO; +CRAN450T9 PO; +DIVA-76 PO; -DIVA-78 PO; +FLUO20CA36 PO; -FLUO40CA49 PO; +GUAI5SYR PO; -LEVO150T PO; +LEVO175T7 PO; +LIDO30AD10 TD; -LIDOCAINE PATCH 5%; -MAGN200T9 PO; +MAGN400O6 PO; -POTA8CAP20 PO
[2024-08-19 21:00] VITALS: O2SAT 95
[2024-08-19 21:07] LABS: BASOPHILS # (AUTO) 0.1 K/UL (0.0-0.2); BASOPHILS % (AUTO) 0.7 % (0.0-2.0); EOSINOPHILS # (AUTO) 0.1 K/uL (0.0-0.7); EOSINOPHILS % (AUTO) 1.6 % (0.0-7.0); HEMATOCRIT 25.7 % (31.2-41.9); HEMOGLOBIN 8.4 g/dL (10.9-14.3); LYMPHOCYTES # (AUTO) 0.4 K/uL (0.8-4.8); LYMPHOCYTES % (AUTO) 4.9 % (20.5-51.5); MEAN CORPUSCULAR HEMOGLOBIN 29.9 uug (24.7-32.8); MEAN CORPUSCULAR HGB CONC 33 g/dL (32.3-35.6); MEAN CORPUSCULAR VOLUME 91.5 fL (75.5-95.3); MONOCYTES # (AUTO) 1.1 K/uL (0.1-1.30); MONOCYTES % (AUTO) 14.5 % (0.0-11.0); NEUTROPHILS # (AUTO) 5.7 K/uL (1.8-8.9); NEUTROPHILS % (AUTO) 78.3 % (38.5-71.5); PLATELET COUNT (AUTO) 169 K/uL (179-408); RED BLOOD CELL COUNT(AUTO) 2.81 MIL/uL (3.63-4.92); RED CELL DISTRIBUTION WIDTH 19.9 % (12.3-17.7); WHITE BLOOD COUNT (AUTO) 7.3 K/uL (3.8-11.8)
[2024-08-19] MEDS ORDERED: IPRATROPIUM BROMIDE 0.5 MG/2.5 ML NEBU ONE (21:09)
[2024-08-19] MEDS ORDERED: ALBUTEROL SULFATE 2.5 MG/3 ML NEBU ONE (21:09)
[2024-08-19 21:11] LABS: DIFFERENTIAL COMMENT 1
[2024-08-19] MEDS: IPRATROPIUM BROMIDE 0.5 MG/2.5 ML NEBU NEB ONE (21:12)
[2024-08-19] MEDS: ALBUTEROL SULFATE 2.5 MG/3 ML NEBU NEB ONE (21:12)
[2024-08-19 21:14] LABS: CALCIUM 8.2 mg/dL (8.5-10.1); CARBON DIOXIDE 33 mmol/L (21-32); CHLORIDE 104 mmol/L (98-107); CREATININE 1.1 mg/dL (0.6-1.3); GLUCOSE 98 mg/dL (74-106); POTASSIUM 3.6 mmol/L (3.5-5.1); SODIUM SERUM 143 mmol/L (136-145); UREA NITROGEN, BLOOD 9 mg/dL (7-18)
[2024-08-19 21:15] VITALS: O2SAT 98
[2024-08-19] MEDS ORDERED: methylPREDNISolone SOD SUCC 125 MG/2 ML VIAL ONE (21:24)
[2024-08-19] MEDS ORDERED: MAGNESIUM SULFATE/D5W 200 ML ONE (21:24)
[2024-08-19 21:27] LABS: ALANINE AMINOTRANSFERASE 14 U/L (14-59); ALBUMIN 2.5 g/dL (3.4-5.0); ALKALINE PHOSPHATASE 159 U/L (50-136); ASPARTATE AMINOTRANSFERASE 10 U/L (15-37); BILIRUBIN,DIRECT 0.3 mg/dL (0.0-0.2); BILIRUBIN,TOTAL 0.6 mg/dL (0.2-1.0); NT-PRO BNP 12337 pg/mL (0-125); TOTAL PROTEIN, SERUM 5.8 g/dL (6.4-8.2)
[2024-08-19] MEDS: MAGNESIUM SULFATE 2 GM in IV DEXTROSE 5% 100 ML IV ONE (21:27)
[2024-08-19] MEDS: methylPREDNISolone SOD SUCC 125 MG/2 ML VIAL IV ONE (21:27)
[2024-08-19] MEDS: FUROSEMIDE 40 MG/4 ML VIAL IV ONE (23:15)
[2024-08-19] MEDS ORDERED: SODI10PO PO (23:18)
[2024-08-19] MEDS ORDERED: POLY250017 PO (23:18)
[2024-08-19] MEDS ORDERED: SENN8.6T19 PO (23:18)
[2024-08-19] MEDS ORDERED: DIVA125T2 PO (23:18)
[2024-08-19] MEDS ORDERED: ACET-73 PO (23:18)
[2024-08-19] MEDS ORDERED: TRAZ-182 PO (23:18)
[2024-08-19] MEDS ORDERED: OXYC5CAP18 PO (23:18)
[2024-08-19] MEDS ORDERED: FOLI0.8T2 PO (23:18)
[2024-08-19] MEDS ORDERED: ASCO500C18 PO (23:18)
[2024-08-19] MEDS ORDERED: AMIO100T4 PO (23:18)
[2024-08-19] MEDS ORDERED: BISA-79 PO (23:18)
[2024-08-20] VITALS (10 sets, daily range): BP systolic 120–150; BP diastolic 61–86; TEMP 97.5–98.7; O2SAT 92–99
[2024-08-20] MEDS ORDERED: MAGNESIUM HYDROXIDE 30 ML LIQUID UDC PO PRN (00:30)
[2024-08-20] MEDS ORDERED: ALBUTEROL SULFATE 2.5 MG/3 ML NEBU NEB PRN (00:30)
[2024-08-20] MEDS ORDERED: ONDANSETRON 4 MG/2 ML VIAL IV PRN (00:30)
[2024-08-20] MEDS ORDERED: FUROSEMIDE 40 MG/4 ML VIAL ONE (01:57)
[2024-08-20 07:07] LABS: BASOPHILS % (AUTO) 0.1 % (0.0-2.0); HEMATOCRIT 25.4 % (31.2-41.9); HEMOGLOBIN 8.4 g/dL (10.9-14.3); LYMPHOCYTES # (AUTO) 0.2 K/uL (0.8-4.8); LYMPHOCYTES % (AUTO) 2.7 % (20.5-51.5); MEAN CORPUSCULAR HEMOGLOBIN 30.1 uug (24.7-32.8); MEAN CORPUSCULAR HGB CONC 33 g/dL (32.3-35.6); MEAN CORPUSCULAR VOLUME 91.2 fL (75.5-95.3); MONOCYTES # (AUTO) 0.1 K/uL (0.1-1.30); MONOCYTES % (AUTO) 1.4 % (0.0-11.0); NEUTROPHILS # (AUTO) 5.4 K/uL (1.8-8.9); NEUTROPHILS % (AUTO) 95.8 % (38.5-71.5); PLATELET COUNT (AUTO) 157 K/uL (179-408); RED BLOOD CELL COUNT(AUTO) 2.78 MIL/uL (3.63-4.92); RED CELL DISTRIBUTION WIDTH 19.6 % (12.3-17.7); WHITE BLOOD COUNT (AUTO) 5.7 K/uL (3.8-11.8)
[2024-08-20 07:21] LABS: DIFFERENTIAL COMMENT 1
[2024-08-20 07:51] LABS: CALCIUM 8.1 mg/dL (8.5-10.1); CARBON DIOXIDE 33 mmol/L (21-32); CHLORIDE 105 mmol/L (98-107); CREATININE 1.1 mg/dL (0.6-1.3); GLUCOSE 151 mg/dL (74-106); MAGNESIUM 1.9 mg/dL (1.8-2.4); NT-PRO BNP 18363 pg/mL (0-125); PHOSPHOROUS 3.3 mg/dL (2.5-4.9); POTASSIUM 3.7 mmol/L (3.5-5.1); SODIUM SERUM 144 mmol/L (136-145); UREA NITROGEN, BLOOD 10 mg/dL (7-18)
[2024-08-20] MEDS: ACETAMINOPHEN 325 MG TABLET PO PRN (08:55)
[2024-08-20] MEDS: FUROSEMIDE 20 MG/2 ML VIAL IV SCH (08:55)
[2024-08-20] MEDS: REMEDY ESSENTIAL ZINC PASTE 113 GM TP PRN (08:56)
[2024-08-20] MEDS ORDERED: BISACODYL 5 MG TABLET.DR PO PRN (09:45)
[2024-08-20] MEDS: GABAPENTIN 100 MG CAPSULE PO SCH (11:28)
[2024-08-20] MEDS: DIVALPROEX 125 MG TABLET.DR PO SCH (11:28)
[2024-08-20] MEDS: AMIODARONE HCL 200 MG TABLET PO SCH (11:28)
[2024-08-20] MEDS: APIXABAN 5 MG TABLET PO SCH (11:29)
[2024-08-20] MEDS: SENNOSIDES 1 TABLET PO SCH (11:34)
[2024-08-20] MEDS: SODIUM ZIRCONIUM CYCLOSILICATE 10 GM POWD.PACK PO SCH (11:34)
[2024-08-20] MEDS: LEVOTHYROXINE SODIUM 150 MCG TABLET PO SCH (11:34)
[2024-08-20] MEDS: ALBUTEROL SULFATE 2.5 MG/3 ML NEBU NEB SCH (13:24)
[2024-08-20] MEDS: IPRATROPIUM BROMIDE 0.5 MG/2.5 ML NEBU NEB SCH (13:24)
[2024-08-20] MEDS: TRAZODONE 50 MG TABLET PO SCH (21:43)
[2024-08-21] VITALS (12 sets, daily range): BP systolic 133–152; BP diastolic 49–91; TEMP 97.2–98.6; O2SAT 95–100
[2024-08-21 08:48] LABS: ABG BASE EXCESS 7.9 mmol/L (-2.0-3.0); ABG HCO3 31.9 mmol/L (21.0-28.0); ABG PCO2 42.2 mmHg (32.0-45.0); ABG PH 7.496 (7.350-7.450); ABG PO2 83.9 mmHg (83.0-108.0); ABG SITE RIGHT BRACHIAL; COHb 0.3 % (0.5-1.5); MetHb 0.1 % (0.0-1.5); O2Hb 96.1 % (94.0-98.0)
[2024-08-21] MEDS ORDERED: APIX5TAB PO (14:12)
[2024-08-21] MEDS ORDERED: FURO20TA4 PO (14:12)
[2024-08-22] VITALS (9 sets, daily range): BP systolic 137–164; BP diastolic 77–90; TEMP 97.1–98.4; O2SAT 94–100
[2024-08-22] MEDS ORDERED: CLOTRIMAZOLE 1% CREAM 30 GM TUBE TOP SCH (17:00)
== END 2024-08-22 15:25 | DRG 189 ==
LOC: ER 20:10 → TELE3 08-20 03:18
PROVIDERS: ADMIT Nurse Practitioner Family; ATTEND Nurse Practitioner Acute Care
DX: J96.01 Acute respiratory failure with hypoxia (principal); I50.43 Acute on chronic combined systolic (congestive) and diastolic (congestive) heart failure; D68.59 Other primary thrombophilia; I25.10 Atherosclerotic heart disease of native coronary artery without angina pectoris; Z95.1 Presence of aortocoronary bypass graft; Z66 Do not resuscitate; F25.9 Schizoaffective disorder, unspecified; I48.0 Paroxysmal atrial fibrillation; Z79.01 Long term (current) use of anticoagulants; D69.6 Thrombocytopenia, unspecified; E66.9 Obesity, unspecified; Z68.32 Body mass index [BMI] 32.0-32.9, adult; F32.9 Major depressive disorder, single episode, unspecified; E78.5 Hyperlipidemia, unspecified; D63.8 Anemia in other chronic diseases classified elsewhere; I07.1 Rheumatic tricuspid insufficiency; N18.9 Chronic kidney disease, unspecified; Z79.899 Other long term (current) drug therapy; Z86.73 Personal history of transient ischemic attack (TIA), and cerebral infarction without residual deficits; C44.509 Unspecified malignant neoplasm of skin of other part of trunk; Z79.890 Hormone replacement therapy; J40 Bronchitis, not specified as acute or chronic; K21.9 Gastro-esophageal reflux disease without esophagitis; M81.0 Age-related osteoporosis without current pathological fracture; E66.01 Morbid (severe) obesity due to excess calories; F41.9 Anxiety disorder, unspecified
CPT/HCPCS: 36415; 36600; 71045; 82803; 83735; 84100; 84484; 85025; 94640; 94664; A6209; A6213; G0378; J1940; J2919; J3475; J3590